=== PATIENT | male | born 1930 | race Caucasian/White ===

== ENCOUNTER 2020-09-19 21:54 | Inpatient (IN) | payer MEDICARE, OTHER ==
[~2020-09-19] VITALS: Ht 180.3 cm; Wt 106.0 kg
--- NOTE | 2020-09-19 22:04 | PHYS DOC ---
Past History Past Medical History: Arthritis, Bronchitis, Cancer, CHF, Diabetes, Heart Disease, Hypertension, Renal Disease, Sciatica Past Medical History Hx. 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 I ve been feeling zander off the last few days.. felt like I had a fever.. but my said I didnt when she took it... I went to get out my chair.. but couldnt... to weak... the last time this happen.. I was septic.. and had a UTI.. My back been hurting more tonight too.. but the fever and shortness of breath is more concern.. and I got so weak ., I could not get out the chair...".." I feel like I.. got flu.. or some bug..."." ,...but .. I I have not left the house a bit, or been around anybody sick since this Covid things started.." .." my gut even hurts.." Patient is a 89 year old male who presents with above hx and complaints of weakness, fatigue, dyspnea, fever, malaise, arthralgia, myalgia and nonproductive cough. Patient been ill last several days. Patient normally follows [facility]. Patient also follows at [place]. Patient has hx. of diabetes. 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 Pt. worked in [employer] 4 yrs. in [employer]. Past history of hypertension, diabetes, sleep apnea, sciatica and chronic low back pain, CHF, renal insufficiency, asbestosis, prostate cancer status post prostatectomy surgery. Pt. had no recent travel. No specific ill contacts. is well. No change in meds. History of prostate cancer and surgery 19 years ago. Patient has been compliant with home meds including his anti coagulation drugs. Review of Systems: Review of Systems: Constitutional: Complains of fever Eyes: Denies change in visual acuity HENT: Denies nasal congestion or sore throat Respiratory: Complains of shortness of breath Cardiovascular: Complains of irregular heart rate GI: generalized abdominal pain,, denies nausea, vomiting, bloody stools or diarrhea : Denies dysuria Musculoskeletal: Complains of back pain or joint pain. Complains of generalized weakness Integument: Denies rash Neurologic: Denies headache, focal weakness or sensory changes Endocrine: Denies polyuria or polydipsia Lymphatic: Denies swollen glands Psychiatric: Denies depression or anxiety Family History: Family History: Noncontributory to presentation Current Medications: Current Meds: See nursing for home meds Allergies: Allergies: No known drug allergies Physical Exam: PE: Constitutional: Moderate acute distress, non-toxic appearance. [] HENT: Normocephalic, atraumatic, bilateral external ears normal, oropharynx moist, no oral exudates, nose normal. [] Eyes: PERRLA, EOMI, conjunctiva normal, no discharge. [] Neck: Normal range of motion, no tenderness, supple, no stridor. [] Cardiovascular: Bradycardia occasional PVC per monitor, irregular heart rate, PMI to left, no murmur [] Lungs & Thorax: Bilateral breath sounds equal apex with scattered wheezes rhonchi and crackles on auscultation [] Abdomen: Bowel sounds normal, soft, no tenderness, no masses, no pulsatile masses. Distended. Old surgery scars. Skin: Warm, dry, no erythema, no rash. [] Back: No tenderness, no CVA tenderness. [] Extremities: No tenderness, no cyanosis, no clubbing, ROM intact, no edema. Arthritic changes. No cording. Neurologic: Alert and oriented X 3, normal motor function, normal sensory function, no focal deficits noted. [] Psychologic: Affect anxious, judgement normal, mood normal. [] EKG: EKG: My interpretation EKG shows a sinus rhythm at 64 bpm. Does have occasional PVCs. Does have prolonged QT intervals at 498 ms. QTC is 513 ms. Patient also has a prolonged MT interval at 944 ms. Leftward axis. Abnormal EKG however no findings of acute STEMI of contralateral changes. [] Radiology/Procedures: Radiology/Procedures: [address] [address] IMAGING REPORT Signed PATIENT: JUAN BAZAN ACCOUNT: [id number] : 1930 LOCATION: [address] [place] [address] AGE: 89 SEX: M EXAM STATUS: ADM IN ORD. PHYSICIAN: BIB COTA MD REASON: dyspnea PROCEDURE: CHEST AP ONLY EXAM: XR CHEST 1V 09/20/2020 1:00 AM CLINICAL INDICATION: Dyspnea COMPARISON: None TECHNIQUE: AP view of the chest FINDINGS: The heart is mildly enlarged. Lungs are adequately expanded. There are multiple bilateral pulmonary nodules. There is a subpleural density along the right lateral hemithorax. No pneumothorax. No acute osseous abnormality. IMPRESSION: 1. Multiple bilateral pulmonary nodules. This could be numerous calcified granuloma, however given the patient's history of malignancy metastatic disease is possible. 2. Rounded subpleural density along the right lateral hemithorax could be a loculated effusion or pleural-based mass. CT chest could be obtained to further evaluate. Electronically signed by: Ania Yanes MD (09/20/2020 3:22 AM) [id number] DICTATED AND SIGNED BY: ANIA YANES MD DATE: 09/20/209 CC: BIB COTA MD; ALYSSIA BOWLES MD; ARSENIO SHAW MD ~MTH0 0 [][place] [address] IMAGING REPORT Signed PATIENT: JUAN BAZAN ACCOUNT: [id number] : 1930 LOCATION: ER AGE: 89 SEX: M EXAM STATUS: REG ER ORD. PHYSICIAN: BIB COTA MD REASON: pain, hx prostate cancer, WEAKNESS PROCEDURE: CT LUMBAR SPINE WO CONTRAST EXAMINATION: CT LUMBAR SPINE WO, 09/19/2020 10:33 PM CLINICAL INDICATION: Prostate cancer, weakness COMPARISON: CT abdomen and pelvis 12/04/2008. TECHNIQUE: Helical CT imaging performed of the lumbar spine without the use of intravenous contrast. Sagittal and coronal reformats were obtained. One or more of the following individualized dose reduction techniques were utilized for this examination: 1. Automated exposure control 2. Adjustment of the mA and/or kV according to patient size 3. Use of iterative reconstruction technique. FINDINGS: There 5 nonrib-bearing lumbar vertebral bodies. There is no acute fracture. No suspicious osseous lesions. There is 3 mm anterolisthesis of L2 on L3. Mild S-shaped lumbar scoliosis. There is severe disc space narrowing at L3- L4 and moderate asymmetric disc space narrowing L4-L5 with vacuum disc phenomenon and anterior osteophytes. At L1-L2, there is a trace broad-based disc bulge, moderate facet arthrosis, and ligamentum flavum thickening. No canal or foraminal narrowing. At L2-L3, a disc bulge combined with severe left greater than right facet arthrosis and ligamentum flavum thickening results in moderate to severe canal narrowing. Mild bilateral foraminal narrowing. At L3-L4, a disc bulge combined with moderate facet arthrosis and ligament flavum thickening results in moderate canal and moderate bilateral foraminal sapna rowing. At L4-L5, a broad-based disc bulge, moderate facet arthrosis, and posterior endplate proliferation results in severe right foraminal narrowing. No canal narrowing. At L5-S1, a shallow disc bulge and moderate facet arthrosis results in mild right foraminal narrowing. No canal narrowing. There is severe calcified aortoiliac atherosclerosis. There are hypodense lesions in the liver, one measuring at least 3.1 cm and the other at least 1.5 cm. These have low-density but are incompletely visualized. Paraspinous musculature is normal. IMPRESSION: 1. No acute fracture or suspicious osseous lesion. 2. Overall moderate degenerative disc disease with multifactorial moderate to severe canal narrowing at L2-L3 and moderate canal narrowing at L3-L4. 3. Multilevel foraminal narrowing, severe on the right at L4-L5 and moderate bilaterally at L3-L4. 4. Multilevel facet arthrosis. 5. Severe calcified aortoiliac atherosclerosis. 6. Hypodense lesions in the liver, one measuring at least 3 cm. These likely correlate with multiple hepatic cysts seen on CT from 2008. Electronically signed by: Ania Yanes MD (09/19/2020 11:56 PM) [id number] DICTATED AND SIGNED BY: ANIA YANES MD DATE: 09/19/20 [id number] Heart Score: HEART Score for Chest Pain: HEART Score for Chest Pain Response (Comments) Value History Moderately Suspicious 1 ECG Nonspecific Repolarizatio 1 Age > 65 2 Risk Factors 1 or 2 Risk Factors 1 Troponin < Normal Limit 0 Total 5 Risk Factors: Risk Factors: DM, Current or recent (<one month) smoker, HTN, HLP, family h istory of CAD, obesity. Risk Scores: Score 0 - 3: 2.5% MACE over next 6 weeks - Discharge Home Score 4 - 6: 20.3% MACE over next 6 weeks - Admit for Clinical Observation Score 7 - 10: 72.7% MACE over next 6 weeks - Early Invasive Strategies Course & Med Decision Making: Course & Med Decision Making Pertinent Labs and Imaging studies reviewed. (See chart for details) Discussed presentation, testing and tx. plan with Dr. Bowles. Admit for further eval. and tx. After hydration and antibiotic consider CT chest abdomen. Contrast IV only if creat. improves. Impression: 1. Fever 2. Weakness and fatigue 3. Dyspnea 4. Atypical pneumonia 5. CHF diastolic and systolic dysfunction BNP 1837 6. Elevated lactic acid 2.4 7. Diabetes glucose 193 8. Leukocytosis 12.2 9. Anemia hemoglobin 11.5 10. Acute on chronic back pain-degenerative joint changes-multilevel 11 Hx. Abestosis 12. Pulmonary Nodules / adenopathy =? Metastatic vs inflammatory 13. Sleep apnea Hx. 14. Elevated Lactic Acid 2,4 15. Urinary Tract Infection. [] Dragon Disclaimer: Dragon Disclaimer: This electronic medical record was generated, in whole or in part, using a voice recognition dictation system. Departure Departure: Referrals: ARSENIO SHAW MD (PCP) Dragon Disclaimer This chart was dictated in whole or in part using Voice Recognition software in a busy, high-work load, and often noisy Emergency Department environment. It may contain unintended and wholly unrecognized errors or omissions. Dragon Disclaimer This chart was dictated in whole or in part using Voice Recognition software in a busy, high-work load, and often noisy Emergency Department environment. It may contain unintended and wholly unrecognized errors or omissions. Dragon Disclaimer This chart was dictated in whole or in part using Voice Recognition software in a busy, high-work load, and often noisy Emergency Department environment. It may contain unintended and wholly unrecognized errors or omissions. Dragon Disclaimer This chart was dictated in whole or in part using Voice Recognition software in a busy, high-work load, and often noisy Emergency Department environment. It may contain unintended and wholly unrecognized errors or omissions. BIB COTA MD Sep 19, 2020 22:04
[2020-09-19] MEDS ORDERED: methylPREDNISolone SOD SUCC PF 125 MG/2 ML VIAL. IV ONE (23:00)
[2020-09-19] MEDS ORDERED: AZITHROMYCIN 250 MG TABLET. PO ONE (23:00)
[2020-09-19] MEDS ORDERED: ASPIRIN CHEWABLE 81 MG TABLET. PO ONE (23:00)
[2020-09-19] MEDS ORDERED: ACETAMINOPHEN 500 MG TABLET PO ONE (23:00)
[2020-09-19] MEDS ORDERED: ALBUTEROL SULFATE 8GM INHALER. INH ONE (23:00)
[2020-09-19 23:02] LABS: BASO % 0 % (0-3); EOS % 0 % (0-3); HEMOGLOBIN 11.8 g/dL (13.0-17.5); LYMPH # 0.9 x10^3/uL (1.0-4.8); LYMPH % 8 % (24-48); MEAN CORPUSCULAR HEMOGLOBIN 32 pg (25-35); MEAN CORPUSCULAR HGB CONC 33 g/dL (31-37); MEAN CORPUSCULAR VOLUME 97 fL (79-100); MONO # 1.3 x10^3/uL (0.0-1.1); MONO % 11 % (0-9); NEUT # 9.8 x10^3uL (1.8-7.7); NEUT % 81 % (31-73); PLATELET COUNT 200 x10^3/uL (140-400); RED BLOOD COUNT 3.71 x10^6/uL (4.30-5.70); WHITE BLOOD COUNT 12.2 x10^3/uL (4.0-11.0)
[2020-09-19] MEDS ORDERED: IV NORMAL SALINE 50ML 50 ML ONE (23:10)
[2020-09-19 23:11] LABS: CALCIUM 8.6 mg/dL (8.5-10.1); CREATININE 2.1 mg/dL (0.7-1.3); POTASSIUM 4.4 mmol/L (3.5-5.1)
[2020-09-19] MEDS ORDERED: cefTRIAXone SODIUM 1 GM VIAL ONE (23:11)
[2020-09-19] MEDS: IV RINGERS SOLUTION,LACTATED 1,000 ML IV SCH (23:17)
[2020-09-19 23:23] LABS: DIRECT BILIRUBIN 0.3 mg/dL (0.0-0.2); MAGNESIUM 1.9 mg/dL (1.8-2.4); TOTAL BILIRUBIN 1.3 mg/dL (0.2-1.0); TOTAL PROTEIN 7.4 g/dL (6.4-8.2)
--- NOTE | 2020-09-19 23:58 | RAD ---
EXAMINATION: CT LUMBAR SPINE WO, 09/19/2020 10:33 PM CLINICAL INDICATION: Prostate cancer, weakness COMPARISON: CT abdomen and pelvis 12/04/2008. TECHNIQUE: Helical CT imaging performed of the lumbar spine without the use of intravenous contrast. Sagittal and coronal reformats were obtained. One or more of the following individualized dose reduction techniques were utilized for this examinat ion: 1. Automated exposure control 2. Adjustment of the mA and/or kV according to patient size 3. Use of iterative reconstruction technique. FINDINGS: There 5 nonrib-bearing lumbar vertebral bodies. There is no acute fracture. No suspicious o sseous lesions. There is 3 mm anterolisthesis of L2 on L3. Mild S-shaped lumbar scoliosis. There is s evere disc space narrowing at L3-L4 and moderate asymmetric disc space narrowing L4-L5 with vacuum di sc phenomenon and anterior osteophytes. At L1-L2, there is a trace broad-based disc bulge, moderate facet arthrosis, and ligamentum flavum th ickening. No canal or foraminal narrowing. At L2-L3, a disc bulge combined with severe left greater than right facet arthrosis and ligamentum fl avum thickening results in moderate to severe canal narrowing. Mild bilateral foraminal narrowing. At L3-L4, a disc bulge combined with moderate facet arthrosis and ligament flavum thickening results in moderate canal and moderate bilateral foraminal narrowing. At L4-L5, a broad-based disc bulge, moderate facet arthrosis, and posterior endplate proliferation re sults in severe right foraminal narrowing. No canal narrowing. At L5-S1, a shallow disc bulge and moderate facet arthrosis results in mild right foraminal narrowing . No canal narrowing. There is severe calcified aortoiliac atherosclerosis. There are hypodense lesions in the liver, one m easuring at least 3.1 cm and the other at least 1.5 cm. These have low-density but are incompletely v isualized. Paraspinous musculature is normal. IMPRESSION: 1. No acute fracture or suspicious osseous lesion. 2. Overall moderate degenerative disc disease with multifactorial moderate to severe canal narrowing at L2-L3 and moderate canal narrowing at L3-L4. 3. Multilevel foraminal narrowing, severe on the right at L4-L5 and moderate bilaterally at L3-L4. 4. Multilevel facet arthrosis. 5. Severe calcified aortoiliac atherosclerosis. 6. Hypodense lesions in the liver, one measuring at least 3 cm. These likely correlate with multiple hepatic cysts seen on CT from 2008. Electronically signed by: Ania Yanes MD (09/19/2020 11:56 PM) [id number]
[2020-09-20] MEDS ORDERED: ONDANSETRON PF 4 MG/2 ML VIAL. IVP PRN (00:45)
[2020-09-20] MEDS ORDERED: ACETAMINOPHEN 325 MG TABLET PO PRN (00:45)
[2020-09-20 01:10] LABS: BARBITURATES NEG (NEG); BENZODIAZEPINES NEG (NEG); CANNABINOIDS NEG (NEG); COCAINE NEG (NEG); METHADONE NEG (NEG); OPIATES NEG (NEG); PHENCYCLIDINE NEG (NEG)
[2020-09-20 01:12] LABS: AMPHETAMINE/METHAMPHETAMINE NEG (NEG)
[2020-09-20] MEDS ORDERED: FUROSEMIDE 40 MG/4 ML VIAL IVP ONE (01:15)
[2020-09-20] MEDS ORDERED: IV RINGERS SOLUTION,LACTATED 1,000 ML IV ONE (01:15)
[2020-09-20] MEDS: IV RINGERS SOLUTION,LACTATED 1,000 ML IV SCH ×2 (01:16→01:17)
[2020-09-20 01:17] LABS: BILIRUBIN,URINE NEG (NEG); CLARITY,URINE HAZY; COLOR,URINE YELLOW; GLUCOSE,URINE NEG (NEG)
[2020-09-20 01:18] LABS: BACTERIA,URINE MOD /HPF (0-FEW); NITRITE,URINE NEG (NEG); RBC,URINE OCC /HPF (0-2); UROBILINOGEN,URINE 0.2 mg/dL (0.2 mg/dL); WBC,URINE >40 /HPF (0-4)
--- NOTE | 2020-09-20 01:40 | NUR ---
Pt was [facility] room [facility] from ER via [facility], accompanied by EMS and nursing staff. Pt pulled over from gurney to bed x 4 assist. Admission assessment completed. Pt stated that his "legs felt weak and heavy...I was unable to get out of my chair. been feeling sick for the last few days." Pt stated that his leg strength has improved since coming to hospital but is still "off" for him. Pt was able to stand at bedside with walker to use urinal. Health history & home medication (see paper list) reviewed with pt. Oni for VTE. Pt UTD on flu vaccine. PT/OT consulted. Pt was given written information regarding hospital policies, unit procedures and contact persons. Valuables were checked and left at bedside.
[2020-09-20 02:07] VITALS: BP 132/59
[2020-09-20] MEDS ORDERED: SOTA120T14 PO (02:42)
[2020-09-20] MEDS ORDERED: SPIR25TA5 PO (02:42)
[2020-09-20] MEDS ORDERED: APIX2.5T PO (02:42)
[2020-09-20] MEDS ORDERED: BENA20TA4 PO (02:42)
[2020-09-20] MEDS ORDERED: FURO40TA4 PO (02:42)
[2020-09-20] MEDS ORDERED: POTA20TA4 PO (02:42)
[2020-09-20] MEDS ORDERED: GABA-586 PO (02:42)
[2020-09-20] MEDS ORDERED: ALOG6.252 PO (02:42)
[2020-09-20] MEDS ORDERED: AMLO-187 PO (02:42)
--- NOTE | 2020-09-20 03:24 | RAD ---
EXAM: XR CHEST 1V 09/20/2020 1:00 AM CLINICAL INDICATION: Dyspnea COMPARISON: None TECHNIQUE: AP view of the chest FINDINGS: The heart is mildly enlarged. Lungs are adequately expanded. There are multiple bilateral pulmonary nodules. There is a subpleural density along the right lateral hemithorax. No pneumothorax. No acute osseous abnormality. IMPRESSION: 1. Multiple bilateral pulmonary nodules. This could be numerous calcified granuloma, however given th e patient's history of malignancy metastatic disease is possible. 2. Rounded subpleural density along the right lateral hemithorax could be a loculated effusion or ple ural-based mass. CT chest could be obtained to further evaluate. Electronically signed by: Ania Yanes MD (09/20/2020 3:22 AM) [id number]
[2020-09-20 05:26] VITALS: BP 110/69
[2020-09-20] MEDS: IPRATRPIUM/ALBUTEROL 0.5/2.5MG 3 ML NEBU. NEB SCH ×2 (08:00→12:00)
--- NOTE | 2020-09-20 08:02 | EKG ---
[address] [address] Test Date: 2020-09-19 Test Time: 22:21:42 Pat Name: JUAN BAZAN Department: Room: 122 A Gender: M Home Health Specialist: JOEY : 1930 Requested By: BIB COTA Order Number: [id number] Reading MD: Measurements Intervals [place] Rate: 64 P: 0 [place]: 262 QRS: -7 QRSD: 76 T: -5 QT: 498 QTc: 513 Interpretive Statements SINUS RHYTHM VENTRICULAR PREMATURE COMPLEX(ES) ATRIAL PREMATURE COMPLEX(ES) PROLONGED [place] INTERVAL LEFTWARD AXIS PROLONGED QT ABNORMAL ECG RI6.02 No previous ECG available for comparison
[2020-09-20] MEDS: LACTOBACILLUS RHAMNOSUS GG 1 CAPSULE. PO SCH ×2 (08:21→20:39)
[2020-09-20 10:45] VITALS: BP 134/56
--- NOTE | 2020-09-20 10:46 | NUR ---
Per Dr Bowles, we will postpone CT Chest/abdomen/pelvis and order at a later date.
[2020-09-20 14:28] VITALS: BP 114/51
--- NOTE | 2020-09-20 14:56 | HP ---
ADMIT DATE: 09/20/2020 PRIMARY CARE PHYSICIAN: Dr. Ochoa HISTORY OF PRESENT ILLNESS: The patient is an 89-year-old male patient who presented to the Emergency Room with complaint of weak, had a fever and was unable to get out of his chair, last time something like this happened while he was septic and had UTI. He also has back pain, more than usual, but the fever and shortness of breath is more concern and therefore, he was brought to the hospital for further evaluation and treatment neither he nor his , has documented exposure to anybody with COVID-19 infection. He also complained of malaise, arthralgia, myalgia, and nonproductive cough. He apparently has been ill for the last several days. The patient follows at the [place] and also his primary care physician is Dr. Ochoa. He was admitted. He was extensively investigated in the Emergency Room, has had an EKG, which showed that he was in sinus rhythm at 64 beats per minute, does have a prolonged QT interval of 498 with a corrected QT interval of 513, also prolonged TN interval, but no evidence of STEMI. His chest x-ray showed that the patient has multiple bilateral pulmonary nodules. This could be numerous calcified granulomas; however, given the patient's history of malignancy, metastatic disease possible, has rounded subpleural density along the right lateral hemithorax could be loculated effusion or pleural based mass. He has also mildly enlarged heart and lungs are adequately expanded. He did have also CT scan of the lumbar spine showed the patient has no acute fracture or suspicious osseous lesion. He has overall moderate degenerative disk disease with multiple level [id number]-[id number] canal narrowing at L2-L3 and moderate canal narrowing at L3-L4, had multilevel foraminal narrowing, multilevel facet arthrosis, severe calcified aortoiliac atherosclerosis, hypodense lesion in the liver measuring 3 mm, likely correlates with multiple hepatic cyst. The patient was treated with IV antibiotic in the form of ceftriaxone and Zithromax, was given also lactated ringer and furosemide, and was admitted for further evaluation and treatment. PAST MEDICAL HISTORY: Significant for type 2 diabetes mellitus, coronary artery disease, status post PCI and stent deployment, chronic atrial fibrillation, hypertension, hyperlipidemia, morbid obesity and obstructive sleep apnea. PAST SURGICAL HISTORY: Significant for tonsillectomy, bilateral cataract extraction, bilateral total knee arthroplasty, prostatectomy and cholecystectomy. He became incontinent and has had a device to assist with continence. ALLERGIES: He has no known drug allergies. MEDICATIONS: He is currently on following medications: He is on apixaban 2.5 mg twice a day, sotalol 120 mg twice a day, amlodipine besylate 10 mg once a day, benazepril 20 mg daily, spironolactone 25 mg once a day, gabapentin 300 mg twice a day, potassium chloride 20 mEq once a day, furosemide 40 mg daily and alogliptin 6.25 mg once a day. FAMILY HISTORY: He has one brother older and 4 sisters are older. All of them except 1 sister. The cause of their is not known to him. His father of prostate cancer at the age of 82 and mother has at age of 87 because of dementia and Parkinson's disease. SOCIAL HISTORY: He is , has 3 biological children and 4 stepchildren. He never smoked. Drinks alcohol very occasionally. 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 REVIEW OF SYSTEMS: As per history of present illness. PHYSICAL EXAMINATION: GENERAL: On arrival to the Emergency Room, he looked well and was clearly in no apparent respiratory distress, slightly pale, but no jaundice, cyanosis or thyromegaly. No jugular venous distention. No limb edema. VITAL SIGNS: His heart rate on arrival was 68, blood pressure 151/67, temperature was 100.2, respiratory rate was 16, and oxygen saturation was 95%. HEAD, EYES, EARS, NOSE AND THROAT: Showed normocephalic and atraumatic. NECK: Supple. HEART: Showed normal first and second heart sounds. No gallop or murmur. CHEST: Clear to auscultation. No crepitation or rhonchi. ABDOMEN: Distended, soft, nontender. NEUROLOGIC: He was extremely hard of hearing, but all other cranial nerves are intact. EXTREMITIES: He moves extremities without difficulty. He ambulates with a cane at home. LABORATORY DATA: Showed a white cell count of 12,200; hemoglobin 11.8; hematocrit 36; MCV 97 and platelet count of 200,000. His chemistry showed a serum sodium 136, potassium 4.4, chloride 101, bicarbonate 23, anion gap of 12, BUN 44, creatinine was 2.1, estimated GFR was 30 mL per minute. His glucose 193, calcium was 8.6. His magnesium was 1.9. Total bilirubin 1.3. AST, ALT, alkaline phosphatase were normal. His CK was 52. Beta natriuretic peptide was 1833. Total protein 7.4, albumin 3. His prothrombin time, INR and aPTT were normal. D-dimer was elevated at 0.96. Urinalysis showed the urine was yellow, hazy with a pH of 5.5, specific gravity of 1.010, small amount of protein. The urine was negative for glucose, ketones, blood, nitrite and bilirubin. There is large amount of leukocyte esterase, occasional rbc's, more than 40 wbc's, and moderate amount of bacteria. Urine drug screen was essentially negative. His chest x-ray showed the patient has multiple bilateral pulmonary nodules. This could be numerous calcified granulomas; however, given the patient's history of malignancy, metastatic disease possible, has rounded subpleural density along the right lateral hemithorax, could be loculated effusion or pleural based mass. CT scan could be obtained for further evaluation. His CT scan of the lumbar spine showed that the patient has no acute fracture or suspicious osseous lesions. Overall, moderate degenerative disk disease with multifocal wybzzvod-pz-ftpyrf canal narrowing at L2-L3, L3-L4; has multilevel foraminal narrowing severe in the right L4-L5 and moderate bilaterally at L3-L4; multiple facet arthrosis and severe calcified aortoiliac atherosclerosis. ASSESSMENT AND PLAN: The patient was basically admitted with generalized weakness and fever. The patient has probably congestive heart failure, slightly elevated lactic acid, type 2 diabetes mellitus, anemia, acute on chronic kidney disease, has prostate cancer with questionable metastatic nodules and urinary tract infection. He was started on IV ceftriaxone and Zithromax. We would continue all that and I will reconcile all his medication and I will hold his Lasix for now as well as his spironolactone. Continue with his alogliptin. I will hold his benazepril. Continue with sotalol. We will follow his lab works closely and decide on further management accordingly. ALYSSIA MENDES MD DR: FAMILIA/brianan JOB#: [id number] / [id number]
[2020-09-20] MEDS ORDERED: DEXTROSE 50% 25 GM / 50ML DISP.SYRIN. IV PRN (16:30)
[2020-09-20] MEDS: INSULIN LISPRO 300 UNITS/3 ML VIAL. SQ SCH (17:05)
[2020-09-20] MEDS: LINAGLIPTIN 5 MG TABLET PO SCH (17:06)
[2020-09-20] MEDS: IPRATROPIUM/ALBUTEROL 20/100mcg/INH INHALER. INH SCH ×2 (17:07→20:39)
--- NOTE | 2020-09-20 17:14 | PN ---
DATE: 09/20/2020 SUBJECTIVE: The patient was admitted yesterday with generalized weakness, fever, malaise, arthralgia, myalgia, and was admitted with urinary tract infection, lactic acidosis, questionable acute on chronic diastolic congestive heart failure, probably acute on chronic kidney injury. His most recent creatinine was available on the record was on 01/15/2014. At that time, his creatinine was only 0.9 mg/dL. On questioning him today, he stated that he is feeling generally much improved. He is able now to stand up from his bed or chair without difficulty, was able to walk without assistance or assistive devices and feels generally much improved. PHYSICAL EXAMINATION: GENERAL: When I saw him this afternoon, he looked pale, but no jaundice or cyanosis. No lymphadenopathy, no thyromegaly. No jugular venous distention. No limb edema. VITAL SIGNS: His heart rate was 64, blood pressure 114/51, temperature was 97, respiratory rate was 20, and oxygen saturation was 96%. HEAD, EYES, EARS, NOSE, THROAT: Normocephalic, atraumatic. NECK: Supple. HEART: Showed normal first and second heart sounds. No gallop, rub or murmur. CHEST: Clear to auscultation. No crepitation or rhonchi. ABDOMEN: Distended, soft, nontender. No guarding or rigidity. No organomegaly. All hernial orifice intact. Bowel sounds normal. NEUROLOGIC: He is extremely hard of hearing, but otherwise all his cranial nerves are intact. He moves extremities without difficulty. He ambulates without assistance or assistive devices. His intake and output are incompletely recorded. LABORATORY DATA: His lab work is still pending at the time of this dictation. Did have 3 sets of cardiac enzymes ruled out acute myocardial infarction. His lactic acid is down from 2.4 to 2.1. ASSESSMENT: 1. In summary, this is an 89-year-old male patient who was admitted with weakness, fatigue, dyspnea, fever, malaise, arthralgia, myalgia, and nonproductive cough. He was found to have questionable atypical pneumonia. 2. Congestive heart failure, probably acute on chronic, lactic acidosis, Type 2 diabetes mellitus. Normochromic normocytic anemia, acute on chronic kidney injury. Multiple bilateral pulmonary nodules, questionable metastatic versus inflammatory. He is also known to have obstructive sleep apnea, on BiPAP. PLAN: My plan is to continue with IV antibiotic in the form of ceftriaxone and Zithromax. Continue with apixaban for stroke prevention. Continue with sotalol to control the heart rate. I have held his other medications including his benazepril, furosemide and spironolactone. ALYSSIA MENDES MD DR: FAMILIA/brianna JOB#: [id number] / [id number]
[2020-09-20 18:28] LABS: CALCIUM 8.8 mg/dL (8.5-10.1); CREATININE 2.1 mg/dL (0.7-1.3)
[2020-09-20 20:02] VITALS: BP 133/66
[2020-09-20] MEDS: GABAPENTIN 300 MG CAPSULE. PO SCH (20:39)
[2020-09-20] MEDS: APIXABAN 2.5 MG TABLET PO SCH (20:39)
[2020-09-20] MEDS: SOTALOL 80 MG TABLET. PO SCH (20:40)
[2020-09-20] MEDS ORDERED: AZITHROMYCIN 250 MG TABLET. PO SCH (21:00)
[2020-09-20 22:55] VITALS: BP 136/77
[2020-09-21 06:00] VITALS: BP 129/68
--- NOTE | 2020-09-21 06:05 | NUR ---
Pt sitting up in chair at change of shift watching TV. Pt stated that his "legs feel stronger today." Pt able to be up with walker around in room and to bathroom. Family brought up home CPAP to use tonight. Pt brushed teeth and washed face this AM. Pt slept well during night. Pt hopeful for DC home soon.
[2020-09-21 06:30] LABS: BASO % 0 % (0-3); EOS % 0 % (0-3); HEMOGLOBIN 10.6 g/dL (13.0-17.5); LYMPH # 1.9 x10^3/uL (1.0-4.8); LYMPH % 11 % (24-48); MEAN CORPUSCULAR HEMOGLOBIN 31 pg (25-35); MEAN CORPUSCULAR HGB CONC 32 g/dL (31-37); MEAN CORPUSCULAR VOLUME 97 fL (79-100); MONO # 1.4 x10^3/uL (0.0-1.1); MONO % 8 % (0-9); NEUT # 14.2 x10^3uL (1.8-7.7); NEUT % 81 % (31-73); PLATELET COUNT 188 x10^3/uL (140-400); RED BLOOD COUNT 3.38 x10^6/uL (4.30-5.70); RED CELL DISTRIBUTION WIDTH 13.3 % (11.5-14.5); WHITE BLOOD COUNT 17.5 x10^3/uL (4.0-11.0)
[2020-09-21 06:42] LABS: ALBUMIN 2.5 g/dL (3.4-5.0); ALBUMIN/GLOBULIN RATIO 0.6 (1.0-1.7); CALCIUM 8.4 mg/dL (8.5-10.1); CREATININE 1.9 mg/dL (0.7-1.3); GFR 33.7; POTASSIUM 4.3 mmol/L (3.5-5.1); TOTAL BILIRUBIN 0.7 mg/dL (0.2-1.0); TOTAL PROTEIN 6.4 g/dL (6.4-8.2)
[2020-09-21] MEDS: INSULIN LISPRO 300 UNITS/3 ML VIAL. SQ SCH ×2 (08:00→12:00)
[2020-09-21] MEDS: IPRATROPIUM/ALBUTEROL 20/100mcg/INH INHALER. INH SCH ×2 (08:33→12:00)
[2020-09-21] MEDS: GABAPENTIN 300 MG CAPSULE. PO SCH (08:33)
[2020-09-21] MEDS: APIXABAN 2.5 MG TABLET PO SCH (08:34)
[2020-09-21] MEDS: SOTALOL 80 MG TABLET. PO SCH ×2 (08:35→08:37)
[2020-09-21] MEDS: LACTOBACILLUS RHAMNOSUS GG 1 CAPSULE. PO SCH (08:36)
[2020-09-21] MEDS: LINAGLIPTIN 5 MG TABLET PO SCH (08:36)
[2020-09-21 08:53] LABS: % BANDS 12 % (0-9); % LYMPHS 11 % (24-48); % MONOS 7 % (0-10); % SEGS 70 % (35-66)
[2020-09-21 08:56] LABS: PLT ESTIMATE ADEQUATE (ADEQUATE)
[2020-09-21] MEDS ORDERED: LACTOBACILLUS RHAMNOSUS GG 1 CAPSULE. PO SCH (09:00)
[2020-09-21] MEDS ORDERED: amLODIPine BESYLATE 10 MG TABLET PO SCH (09:00)
[2020-09-21] MEDS ORDERED: POTASSIUM CHLORIDE 20 MEQ TABLET.ER. PO SCH (09:00)
[2020-09-21 11:05] VITALS: BP 110/64
[2020-09-21] MEDS ORDERED: AZIT250T PO (15:25)
[2020-09-21] MEDS ORDERED: CEFD300C PO (15:25)
[2020-09-21 15:39] VITALS: BP 134/63
--- NOTE | 2020-09-21 16:23 | NUR ---
DISCHARGE NOTE-PT PIV ET TELE DISCONTINUED. DISCHARGE INSTRUCTIONS ET MEDICATIONS REVIEWED WITH PT, ET SIGNATURE OBTAINED. PRESCRIPTIONS SENT ELECTRONICALLY ET PAPER COPIES WELL. DAUGHTER ARRIVES TO PICK HIM UP, PT AMBULATES TO FRONT DOOR UNASSISTED.
--- NOTE | 2020-09-21 16:30 | DS ---
DATE OF DISCHARGE: 09/21/2020 HOSPITAL COURSE: The patient is an 89-year-old male patient who came with generalized weakness and had a fever and was unable to get out of his chair; and apparently last time something like this happened, he was diagnosed with sepsis and UTI. He did also complain of back pain more than usual, but the fever and shortness of breath was more concerning and, therefore, he was brought to the hospital for further evaluation and treatment. Neither he nor his has documented exposure to anybody with COVID-19 infection. He also complained of malaise, arthralgia, myalgia, and a productive cough. Apparently, he has been ill for the last several days. The patient follows at the OR and also his primary care physician is Dr. Ochoa. He was extensively investigated in the Emergency Room and his chest x-ray showed the patient has multiple bilateral pulmonary nodules. This could be numerous calcified granulomas; however, given the patient's history of malignancy, metastatic disease is possible. He has rounded subpleural density along the right lateral hemithorax, could be loculated effusion and pleural-based mass. He has also mildly enlarged heart, and lungs are adequately expanded. He did have also CT scan of the lumbar spine, which showed the patient has no acute fracture or suspicious osseous lesion. He was admitted as a person under investigation for COVID-19, community-acquired pneumonia, as well as urinary tract infection. He was treated with IV ceftriaxone as well as Zithromax. We continued all his other medications. Ultimately, his coronavirus by PCR came back negative. He remained afebrile, hemodynamically stable. His blood cultures were negative. He has been up and about, working with physical therapy, has been ambulating without assistance or assistive devices; and therefore, a decision was made to discharge him home. PHYSICAL EXAMINATION: GENERAL: When I examined him this afternoon, he looked well and was clearly in no apparent respiratory distress. He was pale, but no jaundice, cyanosis or thyromegaly. No jugular venous distention. No limb edema. VITAL SIGNS: His heart rate was 56, blood pressure 110/64, temperature was 98, respiratory rate was 20, and oxygen saturation was 97%. HEAD, EYES, EARS, NOSE AND THROAT: Showed normocephalic, atraumatic. NECK: Supple. HEART: Normal first and second heart sounds. No gallop, rub, or murmur. CHEST: Clear to auscultation. No crepitation or rhonchi. ABDOMEN: Distended, soft, nontender. NEUROLOGIC: He was hard of hearing, but otherwise all his other cranial nerves are intact. EXTREMITIES: He moves extremities without difficulty. The patient was ambulating without assistance or assistive devices. He normally uses a cane at home. His intake was 1300, output was incompletely recorded. LABORATORY DATA: Showed a white cell count of 17,500, hemoglobin 10.6, hematocrit 33, MCV 97, and platelet count of 188,000 with normal manual differential. His prothrombin time, INR and aPTT were normal. D-dimer slightly elevated. His chemistry showed a serum sodium of 138, potassium 4.3, chloride 103, bicarbonate 28, anion gap of 7, BUN 51, creatinine 1.9, estimated GFR was 33 mL per minute. His glucose was 148, calcium was 8.4. Total bilirubin, AST, ALT, and alkaline phosphatase were normal. Total protein was 6.4, albumin was 2.5. His prostate specific antigen was 0.07 ng/mL with normal range 0.00-4.00. His TSH was 1.007. Urinalysis showed large amount of leukocyte esterase with more than 40 wbc's, moderate amount of bacteria. Urine drug screen was negative and his coronavirus by PCR was negative. DISCHARGE MEDICATIONS: The patient was discharged home to continue on azithromycin 250 mg once a day for 3 more days, cefdinir 300 mg twice a day for 7 days, alogliptin 6.25 mg daily, amlodipine besylate 10 mg once a day, apixaban 2.5 mg twice a day, benazepril 20 mg daily, furosemide 40 mg once a day, gabapentin 300 mg twice a day, potassium chloride for Klor-Con 20 mEq once a day, sotalol 120 mg twice a day, and spironolactone 25 mg daily. FINAL DISCHARGE DIAGNOSES: 1. Urinary tract infection. 2. Community-acquired pneumonia. 3. Atrial fibrillation, rate controlled, well anticoagulated. 4. Type 2 diabetes mellitus. 5. Hypertension. ALYSSIA MENDES MD DR: FAMILIA/brianna JOB#: [id number] / [id number]
== END 2020-09-21 16:23 | disposition home or self-care (01) | DRG 177 ==
LOC: ER 21:54 → 1 SOUTH 09-20 01:06
PROVIDERS: ADMIT Internal Medicine; ATTEND Internal Medicine
PROC: 5A09357 Assistance with Respiratory Ventilation, Less than 24 Consecutive Hours, Continuous Positive Airway Pressure (ICD-10-PCS; principal; 2020-09-21)
DX: J15.6 Pneumonia due to other Gram-negative bacteria (principal); E43 Unspecified severe protein-calorie malnutrition; N39.0 Urinary tract infection, site not specified; E87.2 Acidosis; I13.0 Hypertensive heart and chronic kidney disease with heart failure and stage 1 through stage 4 chronic kidney disease, or unspecified chronic kidney disease; I48.20 Chronic atrial fibrillation, unspecified; I50.40 Unspecified combined systolic (congestive) and diastolic (congestive) heart failure; N17.9 Acute kidney failure, unspecified; J15.9 Unspecified bacterial pneumonia; D64.9 Anemia, unspecified; E11.22 Type 2 diabetes mellitus with diabetic chronic kidney disease; E78.5 Hyperlipidemia, unspecified; G47.33 Obstructive sleep apnea (adult) (pediatric); G89.29 Other chronic pain; I25.10 Atherosclerotic heart disease of native coronary artery without angina pectoris; I70.8 Atherosclerosis of other arteries; K76.89 Other specified diseases of liver; M47.9 Spondylosis, unspecified; M48.061 Spinal stenosis, lumbar region without neurogenic claudication; Z96.653 Presence of artificial knee joint, bilateral; E66.01 Morbid (severe) obesity due to excess calories; M54.5 Low back pain; N18.9 Chronic kidney disease, unspecified; Z20.822 Contact with and (suspected) exposure to COVID-19; Z80.42 Family history of malignant neoplasm of prostate; Z82.0 Family history of epilepsy and other diseases of the nervous system; Z90.79 Acquired absence of other genital organ(s); Z85.46 Personal history of malignant neoplasm of prostate; Z95.5 Presence of coronary angioplasty implant and graft; Z98.41 Cataract extraction status, right eye; Z98.42 Cataract extraction status, left eye; Z79.899 Other long term (current) drug therapy; Z68.32 Body mass index [BMI] 32.0-32.9, adult
CPT/HCPCS: 36415; 71045; 72131; 80048; 80053; 80076; 80307; 81001; 82550; 82947; 83605; 83690; 83735; 83880; 84443; 84484; 85007; 85025; 85379; 85610; 85730; 87040; 87086; 93005; 96361; 96365; 96375; G0103; J0696; J1815; J1940; J2930; J7120; U0003; 97110; 97530; 99285-25

== ENCOUNTER 2020-11-12 18:58 | Inpatient (IN) | payer MEDICARE, OTHER ==
[~2020-11-12] VITALS: Ht 180.3 cm; Wt 108.7 kg
[~2020-11-12 18:58] MED LIST: ALOG6.252 PO; AMLO-187 PO; APIX2.5T PO; AZIT250T PO; BENA20TA4 PO; CEFD300C PO; FURO40TA4 PO; GABA-586 PO; POTA20TA4 PO; SOTA120T14 PO; SPIR25TA5 PO
--- NOTE | 2020-11-12 19:46 | RAD ---
Chest radiograph 11/12/2020 7:21 PM INDICATION: Dizzy COMPARISON: 09/20/2020 TECHNIQUE: Frontal and lateral views of the chest are provided. FINDINGS: The cardiomediastinal silhouette is within normal limits. Pulmonary emphysematous changes are suspected. Nodular area of consolidation identified within the le ft upper lobe measuring 2.8 x 2.9 cm. Nodular airspace disease identified within the right lung with resolution of previously seen subpleural nodular opacity on prior examination from 09/20/2020. No sign ificant osseous abnormality is identified. IMPRESSION: New multifocal nodular airspace disease within the upper lobes with resolution of previously seen sub pleural consolidative change in the lateral right upper lobe. Differential considerations would inclu de multifocal pneumonia. Further evaluation with CT chest could be of benefit. Cryptogenic organizing pneumonia may have similar appearance. Underlying neoplastic causes remain a differential considerat ion. Electronically signed by: Maira Patel MD (11/12/2020 7:44 PM) [facility]
[2020-11-12 19:59] LABS: BASO % 1 % (0-3); EOS # 0.5 x10^3/uL (0.0-0.7); EOS % 6 % (0-3); HEMOGLOBIN 12.6 g/dL (13.0-17.5); LYMPH # 2.8 x10^3/uL (1.0-4.8); LYMPH % 34 % (24-48); MEAN CORPUSCULAR HEMOGLOBIN 32 pg (25-35); MEAN CORPUSCULAR HGB CONC 33 g/dL (31-37); MEAN CORPUSCULAR VOLUME 97 fL (79-100); MONO # 0.8 x10^3/uL (0.0-1.1); MONO % 10 % (0-9); NEUT # 4.2 x10^3uL (1.8-7.7); NEUT % 50 % (31-73); PLATELET COUNT 197 x10^3/uL (140-400); RED BLOOD COUNT 3.92 x10^6/uL (4.30-5.70); RED CELL DISTRIBUTION WIDTH 13.5 % (11.5-14.5); WHITE BLOOD COUNT 8.3 x10^3/uL (4.0-11.0)
[2020-11-12 20:06] LABS: CALCIUM 9.1 mg/dL (8.5-10.1); CREATININE 2.1 mg/dL (0.7-1.3); POTASSIUM 4.4 mmol/L (3.5-5.1)
[2020-11-12 20:11] LABS: ALBUMIN 3.2 g/dL (3.4-5.0); ALBUMIN/GLOBULIN RATIO 0.8 (1.0-1.7); TOTAL BILIRUBIN 0.9 mg/dL (0.2-1.0); TOTAL PROTEIN 7.4 g/dL (6.4-8.2)
[2020-11-12 20:22] LABS: MAGNESIUM 2.1 mg/dL (1.8-2.4); PHOSPHORUS 4.2 mg/dL (2.6-4.7)
--- NOTE | 2020-11-12 20:45 | PHYS DOC ---
Past History Past Medical History: Arthritis, Bronchitis, Cancer, CHF, Diabetes, Heart Disease, Hypertension, Renal Disease, Sciatica, Other Additional Past Medical Histor: prostate cancer (AUDRA SABA APRN) Past Surgical History: Cholecystectomy, Knee Replacement, Other Additional Past Surgical Histo: prostatectomy, urinary device syphincter (AUDRA SABA APRN) Alcohol Use: None (AUDRA SABA APRN) Adult General Chief Complaint Chief Complaint: HYPERTENSION HPI HPI Patient is a 89-year-old male who presents to the emergency department with concerns of increased heart rate and chest tightness that started shortly after finishing his dinner at 1830 today. Patient states just after eating he went to rest in his living room when he felt his pulse racing, took his pulse and it was 143 bpm, patient states this is unusually high for him even though he does have atrial fibrillation. Patient states after noticing his pulse racing, he felt some tightness to the left side of his chest. Patient rated this chest t ightness had a 7-8/10 on a 1-10 pain scale. Patient states he became concerned as he felt "a little fuzzy "and came to the emergency department. Patient currently rates his chest tightness at a 2-3/10 on a 1-10 pain scale. Patient denies any diaphoretic episodes, denies shortness of breath, denies cough or congestion, denies recent fever or chills. Patient denies rashes of his skin. Patient denies nausea, vomiting, diarrhea, or abdominal pain. Patient states he received his second COVID-19 vaccine 4 days ago. Patient denies any other physical complaints or physical concerns. (AUDRA SABA APRN) Review of Systems Review of Systems 14 body systems of review of systems have been reviewed. See HPI for pertinent positives and negative responses, otherwise all other systems are negative, nonpertinent or noncontributory. (AUDRA SABA APRN) Allergies Allergies Allergies Coded Allergies Type Severity Reaction Last Updated Verified No Known Drug Allergies 11/12/20 No (AUDRA SABA APRN) Physical Exam Physical Exam Constitutional: Well developed, well nourished, no acute distress, non-toxic appearance. HENT: Normocephalic, atraumatic, bilateral external ears normal, oropharynx moist, no oral exudates, nose normal. Eyes: PERRLA, EOMI, conjunctiva normal, no discharge. Neck: Normal range of motion, no tenderness, supple, no stridor., No menin gismus signs, no nuchal rigidity, no C-spine pain. Cardiovascular:Heart rate tachycardic, irregular rhythm. Lungs & Thorax: Bilateral breath sounds clear to auscultation however diminished at bases bilaterally, no increased pain to palpation of the thorax/chest. Abdomen: Bowel sounds normal, soft, no tenderness, no masses, no pulsatile masses. Skin: Warm, dry, no erythema, no rash. Back: No tenderness, no CVA tenderness. Extremities: No tenderness, no cyanosis, no clubbing, ROM intact, no edema. Neurologic: Alert and oriented X 3, normal motor function, normal sensory function, no focal deficits noted. Psychologic: Affect normal, judgement normal, mood normal. (AUDRA SABA APRN) Current Patient Data Vital Signs Vital Signs Date Time Temp Pulse Resp B/P (MAP) Pulse Ox O2 Delivery O2 Flow Rate FiO2 11/12/20 19:05 98.5 114 20 130/71 (90) 96 Lab Results Laboratory Tests Test 11/12/20 19:26 White Blood Count 8.3 x10^3/uL (4.0-11.0) Red Blood Count 3.92 x10^6/uL (4.30-5.70) L Hemoglobin 12.6 g/dL (13.0-17.5) L Hematocrit 38.0 % (39.0-53.0) L Mean Corpuscular Volume 97 fL (79-100) Mean Corpuscular Hemoglobin 32 pg (25-35) Mean Corpuscular Hemoglobin Concent 33 g/dL (31-37) Red Cell Distribution Width 13.5 % (11.5-14.5) Platelet Count 197 x10^3/uL (140-400) Neutrophils (%) (Auto) 50 % (31-73) Lymphocytes (%) (Auto) 34 % (24-48) Monocytes (%) (Auto) 10 % (0-9) H Eosinophils (%) (Auto) 6 % (0-3) H Basophils (%) (Auto) 1 % (0-3) Neutrophils # (Auto) 4.2 x10^3uL (1.8-7.7) Lymphocytes # (Auto) 2.8 x10^3/uL (1.0-4.8) Monocytes # (Auto) 0.8 x10^3/uL (0.0-1.1) Eosinophils # (Auto) 0.5 x10^3/uL (0.0-0.7) Basophils # (Auto) 0.0 x10^3/uL (0.0-0.2) Sodium Level 139 mmol/L (136-145) Potassium Level 4.4 mmol/L (3.5-5.1) Chloride Level 105 mmol/L (98-107) Carbon Dioxide Level 25 mmol/L (21-32) Anion Gap 9 (6-14) Blood Urea Nitrogen 35 mg/dL (8-26) H Creatinine 2.1 mg/dL (0.7-1.3) H Estimated GFR (Cockcroft-Gault) 30.0 BUN/Creatinine Ratio 17 (6-20) Glucose Level 163 mg/dL (70-99) H Calcium Level 9.1 mg/dL (8.5-10.1) Phosphorus Level 4.2 mg/dL (2.6-4.7) Magnesium Level 2.1 mg/dL (1.8-2.4) Total Bilirubin 0.9 mg/dL (0.2-1.0) Aspartate Amino Transferase (AST) 16 U/L (15-37) Alanine Aminotransferase (ALT) 19 U/L (16-63) Alkaline Phosphatase 67 U/L (46-116) Troponin I Quantitative < 0.017 ng/mL (0-0.055) Total Protein 7.4 g/dL (6.4-8.2) Albumin 3.2 g/dL (3.4-5.0) L Albumin/Globulin Ratio 0.8 (1.0-1.7) L (AUDRA SABA APRN) EKG EKG EKG performed at 190 by ED nursing staff shows atrial fibrillation with a heart rate of 105, QTc interval 0.483, no acute STEMI, no ACS, no acute ischemia appreciated. EKG interpreted by ED attending physician Dr. Fuller. Second EKG related to rhythm change performed at 2055, notes normal sinus rhythm without other ectopy, SC interval 0.296, QT 0.457, no acute STEMI, no ACS, no acute ischemia appreciated, EKG interpreted by ED attending physician Dr. Fuller. (AUDRA SABA APRN) Radiology/Procedures Radiology/Procedures []PATIENT: JUAN BAZAN EACCOUNT: [id number]#: [id number] : 1930 LOCATION: ER AGE: 89 SEX: M EXAM STATUS: REG ER ORD. PHYSICIAN: AUDRA SABA APRN REASON: dizzy PROCEDURE: CHEST PA & LATERAL Chest radiograph 11/12/2020 7:21 PM INDICATION: Dizzy COMPARISON: 09/20/2020 TECHNIQUE: Frontal and lateral views of the chest are provided. FINDINGS: The cardiomediastinal silhouette is within normal limits. Pulmonary emphysematous changes are suspected. Nodular area of consolidation identified within the left upper lobe measuring 2.8 x 2.9 cm. Nodular airspace disease identified within the right lung with resolution of previously seen subpleural nodular opacity on prior examination from 09/20/2020. No significant osseous abnormality is identified. IMPRESSION: New multifocal nodular airspace disease within the upper lobes with resolution of previously seen subpleural consolidative change in the lateral right upper lobe. Differential considerations would include multifocal pneumonia. Further evaluation with CT chest could be of benefit. Cryptogenic organizing pneumonia may have similar appearance. Underlying neoplastic causes remain a differential consideration. Electronically signed by: Lloyd Chapin MD (11/12/2020 7:44 PM) [facility] DICTATED AND SIGNED BY: LLOYD CHAPIN MD DATE: 11/12/201941 CC: AUDRA SABA APRN; ARSENIO SHAW MD ~MTH0 0 (AUDRA SABA APRN) Heart Score C/O Chest Pain: Yes HEART Score for Chest Pain: HEART Score for Chest Pain Response (Comments) Value History Moderately Suspicious 1 ECG Nonspecific Repolarizatio 1 Age > 65 2 Risk Factors 1 or 2 Risk Factors 1 Troponin < Normal Limit 0 Total 5 Risk Factors: Risk Factors: DM, Current or recent (<one month) smoker, HTN, HLP, family history of CAD, obesity. Risk Scores: Risk Factors: DM, Current or recent (<one month) smoker, HTN, HLP, family history of CAD, obesity. (AUDRA SABA APRN) Course & Med Decision Making Course & Med Decision Making Pertinent Labs and Imaging studies reviewed. (See chart for details) 82-year-old male, vital signs reviewed, presents emergency department concerning of chest pain and fast heart rate after eating at home. Physical examination concerning for cardiopulmonary process, a cardiopulmonary work-up was initiated in the ED. Patient's troponin nonconcerning for cardiac process, however EKG shows A. fib, during cardiac monitoring monitoring patient's nurse noticed and documented short 5 beat runs of ventricular tachycardia off of 3-lead monitoring device. Upon reexamination of the patient, the patient denies any increased chest pain or discomfort, patient does state he has no pain and feels as if he is doing much better. Chest x-ray was concerning for multifocal atypical pneumonia, discussed with patient will CT chest for further evaluation and admit to [facility] for atypical pneumonia and treatment. Patient states he is amenable to this plan. During cardiac monitoring of patient, systems technician noticed a rhythm change for the patient, patient now appears to be in normal sinus rhythm, a second EKG was ordered. Called and discussed patient case with inpatient Dr. Bowles who agreed to accept patient admission to the telemetry unit for atypical pneumonia and PUI, patient started on 500 mg Zithromax IV, 1 g Rocephin IV, COVID-19 routine testing obtained, serial troponin enzymes ordered, pending CT chest at that time, patient admitted to the telemetry unit, Dr. Bowles has assumed patient care at this time. (AUDRA SABA APRN) Dragon Disclaimer Dragon Disclaimer This electronic medical record was generated, in whole or in part, using a voice recognition dictation system. (AUDRA SABA APRN) Departure Departure: Impression: Primary Impression: Atypical pneumonia Additional Impression: Person under investigation for COVID-19 Disposition: 09 ADMITTED INPT THIS HOSP Admitting Physician: Autumn Bowles (Telemetry unit to Dr. Bowles for atypical pneumonia and PUI) (AUDRA SABA APRN) Condition: GUARDED Referrals: ARSENIO SHAW MD (PCP) Dragon Disclaimer This chart was dictated in whole or in part using Voice Recognition software in a busy, high-work load, and often noisy Emergency Department environment. It may contain unintended and wholly unrecognized errors or omissions. (BIB FULLER MD) Attending Signature Attending Signature I have participated in the care of this patient and I have reviewed and agree with all pertinent clinical information above including history, exam, and recommendations. (BIB FULLER MD) Problem Qualifiers AUDRA SABA APRN Nov 12, 2020 20:44 BIB FULLER MD Nov 12, 2020 23:54
--- NOTE | 2020-11-12 20:54 | RAD ---
PQRS Compliance Statement: One or more of the following individualized dose reduction techniques were utilized for this examinat ion: 1. Automated exposure control 2. Adjustment of the mA and/or kV according to patient size 3. Use of iterative reconstruction technique CT THORAX WO 11/12/2020 8:13 PM Indication: Abnormal chest x-ray, chest pain COMPARISON: CT chest 01/12/2005, CT abdomen/pelvis 12/04/2008 TECHNIQUE: Multiple axial CT images of the chest were obtained without intravenous contrast. Coronal and sagittal reformats are provided. FINDINGS: Thyroid gland is normal in appearance. Moderate calcified atheromatous plaque identified involving th e thoracic aorta. Heart size within normal limits. Three-vessel coronary vascular calcification is id entified. Mitral annular calcifications are identified. Calcified left hilar lymph nodes are noted. N o pathologically enlarged thoracic lymph nodes within the limitations of a noncontrast examination. P leural based nodularity with calcification is identified throughout the lungs correspond to opacities identified on recent chest radiograph. No focal airspace consolidation to suggest pulmonary infiltra te. Bronchial wall thickening canal with nonspecific bronchitis. No pleural effusions, pulmonary vasc ular congestion or pneumothorax. Simple cysts identified within the liver. There are subcentimeter hy podensities which are too small to characterize. Pleural-based nodule within the left upper lobe zia ures 2.5 x 1.6 cm, previously 2.0 x 1.0 cm on 01/12/2005. There is peripheral calcification this regio n. No suspicious osseous abnormality. 3 mm nonobstructing calculus identified in the right kidney. Th ere is a indeterminate superior pole right renal lesion measuring 1.4 cm (series 2, image 107). Addit ional simple cyst measures 5.8 cm in the superior pole right kidney. Cystic lesion within the tail th e pancreas measures 1.6 cm, not definitively seen on 01/12/2005 CT chest and measuring 6 mm on 9. IMPRESSION: 1. 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 More focal nodular thickening cecilia ntified in the left upper lobe anterior pleura, increased in size since 2004. Findings may be better evaluated with PET/CT to distinguish early mesothelioma. No new airspace consolidation to suggest pne umonia. 2. New solid lesion in superior pole right kidney measures 1.4 cm. Dedicated renal mass protocol CT i s recommended on a nonemergent basis. 3. Cystic lesion within the tail the pancreas measures 1.6 cm. MRCP could be of benefit for further e valuation. 4. Multifocal cystic lesions within the liver, most of which demonstrate fluid density suggestive of simple cysts. Additional findings are indeterminate and attention on abdominal MRI or pet imaging cou ld be of benefit. Electronically signed by: Maira Patel MD (11/12/2020 8:51 PM) [facility]
[2020-11-12] MEDS ORDERED: IV NORMAL SALINE 50ML 50 ML ONE (21:14)
[2020-11-12] MEDS ORDERED: cefTRIAXone SODIUM 1 GM VIAL ONE (21:14)
--- NOTE | 2020-11-12 21:18 | EKG ---
[address] [address] Test Date: 2020-11-12 Test Time: 19:05:07 Pat Name: JUAN BAZAN Department: Room: Gender: M Rn Correctional: : 1930 Requested By: AUDRA SABA Order Number: [id number] Reading MD: Measurements Intervals [place] Rate: 103 P: MS: QRS: 0 QRSD: 78 T: 17 QT: 356 QTc: 468 Interpretive Statements IRREGULAR RHYTHM, NO P-WAVE FOUND LEFTWARD AXIS NO SPECIFIC ECG ABNORMALITIES RI6.02 No previous ECG available for comparison
[2020-11-12] MEDS ORDERED: AZITHROMYCIN 500 MG in IV NORMAL SALINE 250ML 250 ML IV ONE (21:30)
[2020-11-12] MEDS ORDERED: IV NORMAL SALINE 250ML 250 ML ONE (21:48)
[2020-11-12] MEDS ORDERED: AZITHROMYCIN 500 MG VIAL. IV ONE (21:49)
--- NOTE | 2020-11-12 22:30 | NUR ---
The patient, JUAN BAZAN, 89 y/o, M admitted by ALYSSIA MENDES MD, was given written information regarding hospital policies, unit procedures and contact persons. Valuables were checked and vitals obtained. Pt is A&OX4 on room air and is able to express own concerns. Pt is currently sleeping in bed. Will continue to monitor.
[2020-11-12 22:46] VITALS: BP 148/76
[2020-11-13] MEDS: APIXABAN 2.5 MG TABLET PO SCH ×2 (00:08→08:32)
[2020-11-13] MEDS: GABAPENTIN 300 MG CAPSULE. PO SCH ×2 (00:08→08:32)
[2020-11-13] MEDS ORDERED: ANTI-COAG MONITOR BY PHARMACY. MC PRN (00:15)
--- NOTE | 2020-11-13 01:05 | EKG ---
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
[2020-11-13 05:51] VITALS: BP 104/45
[2020-11-13] MEDS ORDERED: FUROSEMIDE 40 MG TABLET PO SCH (09:00)
[2020-11-13] MEDS ORDERED: LINAGLIPTIN 5 MG TABLET PO SCH (09:00)
[2020-11-13] MEDS ORDERED: SOTALOL 80 MG TABLET. PO SCH (09:00)
[2020-11-13] MEDS ORDERED: amLODIPine BESYLATE 10 MG TABLET PO SCH (09:00)
[2020-11-13] MEDS ORDERED: LISINOPRIL 20 MG TABLET PO SCH (09:00)
[2020-11-13] MEDS ORDERED: SPIRONOLACTONE 25 MG TABLET PO SCH (09:00)
[2020-11-13] MEDS ORDERED: POTASSIUM CHLORIDE 20 MEQ TABLET.ER. PO SCH (09:00)
[2020-11-13 10:28] VITALS: BP 130/64
[2020-11-13 15:09] VITALS: BP 140/63
--- NOTE | 2020-11-13 16:41 | NUR ---
PATIENT IS DISCHARGED HOME WITH SELF CARE. PT IS STABLE AT TIME OF DISCHARGE. PT IS GIVEN ALL DISCHARGE AND FOLLOW UP INSTRUCTIONS. PTS IV IS REMOVED TELE MONITOR D/C'D AND PT IS W/C'D OFF OF UNIT ACCOMPANIED BY STAFF.
--- NOTE | 2020-11-13 17:18 | SSS ---
ADMIT DATE: 11/12/2020 HISTORY OF PRESENT ILLNESS: The patient is an 89-year-old male patient who came to the Emergency Room complaining that he felt his heart is racing and heart rate was 143 beats per minute. The patient stated that it is unusually high for him even though he does have atrial fibrillation. He also stated that he noticed his pulse racing. He felt also some tightness to the left side of his chest. He rated his chest tightness 7-8/10. The patient states that he became concerned and he felt a little dizzy. He came to the Emergency Department. The patient currently rates his chest pain on arrival at 2-3/10. Denied any diaphoresis. Denied any shortness of breath. Denies any cough, congestion. Denied any recent fever or chills. The patient denies any rashes of his skin. Denied any nausea, vomiting, diarrhea or abdominal pain. He stated that he received his second COVID-19 vaccine about 4 days ago. He denied any other physical complaints or physical concern. He was extensively evaluated in the Emergency Room. He had an EKG, which showed that the patient was in atrial fibrillation with a heart rate of 105, QT interval of 483 with no acute STEMI or acute coronary syndrome. No acute ischemia appreciated. Has had a chest x-ray, PA and lateral view, which showed that the cardiomediastinal silhouette is within normal limits, pulmonary emphysematous changes are suspected, nodular areas of consolidation is identified in the left upper lobe measuring 2.8 x 2.9 cm, nodular airspace disease identified within the right lung with resolution of previously seen subpleural nodular opacity on prior examination and therefore, the impression is that the patient has new multifocal nodular airspace disease within the upper lobe with resolution of previously seen subpleural consolidation changes in the lateral right upper lobe. Differential considerations include multifocal pneumonia. Further evaluation with CT chest could be of benefit, cryptogenic organizing pneumonia may also have similar appearance. Underlying neoplastic cause remains a differential consideration. He did have a CT scan of the chest, which basically showed that the patient has calcified pleural plaques suggestive of prior asbestos exposure, more focal nodular thickening identified in the left upper lobe anterior area increased in size since 2004. Finding may be better evaluated with CT to distinguish early mesothelioma. No new airspace consolidation to suggest pneumonia. New solid lesion in the superior pole of the right kidney measuring 1.4 cm, dedicated renal mass, protocol CT is recommended on a nonemergent basis. He has also had a cystic lesion within the tail of the pancreas measuring 1.6 cm. MRCP could be of benefit for further evaluation. The patient was admitted and had had 2 sets of cardiac enzymes that ruled out myocardial infarction and the patient remained hemodynamically stable, afebrile, has had no further episode of palpitation, no chest tightness, no chest pain, no shortness of breath. He maintained his oxygen saturation at 98% on room air and therefore, a decision was made to discharge him home. We have actually printed a copy of his CT scan of the chest to be taken to his primary care physician, Dr. Ochoa to address the finding on the CT scan. The CT scan showed no evidence of pneumonia. PAST MEDICAL HISTORY: Significant for congestive heart failure, type 2 diabetes mellitus, hypertension, chronic kidney disease, sciatica and prostate cancer. PAST SURGICAL HISTORY: Significant for cholecystectomy, prostatectomy, urinary device sphincter and knee replacement. SOCIAL HISTORY: He is , lives with his and has a daughter. He never smoked, does not drink alcohol or use any drugs. 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 ALLERGIES: He has no known drug allergies. MEDICATIONS: He is currently on following medications: Apixaban 2.5 mg twice a day, sotalol 120 mg twice a day, amlodipine 10 mg once a day, benazepril 20 mg once a day, spironolactone 25 mg once a day, gabapentin 300 mg twice a day, potassium chloride 20 mEq once a day, furosemide 40 mg once a day and alogliptin 6.25 mg once a day. REVIEW OF SYSTEMS: As per history of present illness. PHYSICAL EXAMINATION: GENERAL: On arrival to the Emergency Room, the patient was slightly tachycardic. There was no pallor, jaundice, cyanosis or thyromegaly. No jugular venous distention. No lower limb edema. VITAL SIGNS: His heart rate on arrival was 114 beats per minute, irregularly irregular; blood pressure was 130/71, temperature 98.5, respiratory rate 20, and oxygen saturation was 96%. HEAD, EYES, EARS, NOSE AND THROAT: Showed normocephalic, atraumatic. NECK: Supple. HEART: Showed normal first and second heart sounds. No gallop, rub or murmur. CHEST: Clear to auscultation. No crepitation or rhonchi. ABDOMEN: Distended, soft, nontender. NEUROLOGIC: He is very hard of hearing, but otherwise all his cranial nerves are intact. EXTREMITIES: He moves extremities without difficulty. He apparently ambulates without assistance or assistive devices. LABORATORY DATA: Showed a white cell count of 8300, hemoglobin 12.6, hematocrit 38, MCV 97, and platelet count of 197,000. His chemistry showed a serum sodium 139, potassium 4.4, chloride 105, bicarbonate 25, anion gap of 9, BUN 35, creatinine 2.1, estimated GFR was 30 mL per minute. His glucose was 163, calcium was 9.1. Total bilirubin, AST, ALT, alkaline phosphatase were normal. Total protein is 7.4 and albumin 3.2. His prothrombin time, INR and aPTT are all normal. The patient has 2 sets of cardiac enzymes that ruled out myocardial infarction. ASSESSMENT AND PLAN: The patient remained hemodynamically stable. His heart rate was in the 50s throughout his stay in the hospital, has had no further episodes of palpitation, no chest tightness, no dizziness, no shortness of breath therefore, the patient was discharged home to follow with his primary care physician. FINAL DISCHARGE DIAGNOSES: 1. Paroxysmal atrial fibrillation with rapid ventricular response. 2. Chest tightness, probably may be rate related angina. 3. Hypertension, type 2 diabetes mellitus, congestive heart failure, severe sensorineural deafness. The patient was advised to follow with his primary care physician and a copy of his finding on his CT scan was send with him highlighted to be addressed by his primary care physician. He should also follow with oil field rig builder for this chest tightness that could be rate related angina. ALYSSIA MENDES MD DR: FAMILIA/brianna JOB#: [id number] / [id number]
--- NOTE | 2020-11-15 11:28 | NUR ---
IP note: Call to pt to notify him of negative COVID results. Pt has no questions.
== END 2020-11-13 16:41 | disposition home or self-care (01) | DRG 309 ==
LOC: ER 18:58 → 1 SOUTH 21:00
PROVIDERS: ADMIT Internal Medicine; ATTEND Internal Medicine
DX: I48.0 Paroxysmal atrial fibrillation (principal); I13.0 Hypertensive heart and chronic kidney disease with heart failure and stage 1 through stage 4 chronic kidney disease, or unspecified chronic kidney disease; I50.9 Heart failure, unspecified; N18.9 Chronic kidney disease, unspecified; Z20.822 Contact with and (suspected) exposure to COVID-19; E11.22 Type 2 diabetes mellitus with diabetic chronic kidney disease; Z96.659 Presence of unspecified artificial knee joint; M19.90 Unspecified osteoarthritis, unspecified site; I20.9 Angina pectoris, unspecified; Z85.46 Personal history of malignant neoplasm of prostate
CPT/HCPCS: 36415; 71046; 71250; 80053; 82947; 83735; 84100; 84484; 85025; 85610; 85730; 93005; 96365; J0456; J0696; J7050; U0003; 99285-25

== ENCOUNTER → 2021-02-15 | Outpatient (CLI) | payer MEDICARE, OTHER ==
[~2021-02-15] MED LIST changes: +IOHEXOL 240 MG/ML 50ML VIAL. ONE; +IOHEXOL 300 MG/ML 75 ML VIAL. IV ONE
--- NOTE | 2021-02-16 10:25 | RAD ---
EXAM: CT Abdomen and Pelvis with IV contrast CLINICAL HISTORY: Reason: ELEVATED CA 19-9 LEVEL (TUMOR MARKER), MALIGNANCY / Spl. Instructions: CREA T 1.7/GFR 38- REDUCE DOSE TO 60 ML. DRINKING@11 / History: COMPARISON: CT chest 11/12/2020 TECHNIQUE: Helical CT of the abdomen and pelvis was performed following the administration of intrave nous contrast. Axial, coronal and sagittal reformatted images were generated. PQRS compliance statement - One or more of the following individualized dose reduction techniques wer e utilized for this study: 1. Automated exposure control 2. Adjustment of the mA and/or kV according to patient size 3. Use of iterative reconstruction technique FINDINGS: Lower Chest: Pleural-based nodule in the posterior right lower lobe measures 2.3 cm, only partially included in th e [id number] with peripheral calcification better assessed on prior CT chest. Additional pleural-b ased nodules are seen. Aortic calcifications and coronary calcifications are seen. Abdomen and Pelvis: Hypodense hepatic lesions are cystic. There is been a cholecystectomy. No biliary ductal dilatation. Pancreatic tail lesion measures 1.5 cm, fluid density. Adrenal glands are unremarkable. Hypodense rig ht upper pole renal lesion is exophytic measuring up to 12 Hounsfield units, likely cystic. Nonobstru cting right lower pole renal calculus. Nonobstructing left interpolar renal calculus. Appendix is normal. Moderate colonic stool content is seen. No small or large bowel dilatation. Colon ic diverticulosis of the sigmoid colon. Bladder is unremarkable. No abdominal or pelvic ascites. No a bdominal or pelvic lymphadenopathy. Dense aortobiiliac calcifications are seen. Changes of the prosth esis with reservoir in the lower/anterior pelvis. Surgical clips are also seen in the pelvis. There h as been a prostatectomy. Bladder is unremarkable. Fat-containing left inguinal hernia. Multilevel deg enerative changes of the spine are seen. No definite aggressive osseous lesion is seen. Bones: No aggressive osseous lesion is seen. IMPRESSION: 1. Hypodense hepatic and pancreatic tail lesions may be cystic or related to cystic mass/metastases. Given history of malignancy these can be further assessed by MRI if clinically indicated. 2. Moderate colonic stool content. No bowel obstruction. 3. Colonic diverticulosis without evidence for acute diverticulitis. Dense aortobiiliac calcificatio ns. 4. No abdominal or pelvic lymphadenopathy 5. Changes of prostatectomy with pelvic surgical clips. Electronically signed by: Omer Walls MD (02/16/2021 10:22 AM) DESMON[facility]
== END ==
LOC: CT 10:50
PROVIDERS: ATTEND Internal Medicine
DX: K57.30 Diverticulosis of large intestine without perforation or abscess without bleeding (principal); K86.89 Other specified diseases of pancreas; K76.89 Other specified diseases of liver; R97.8 Other abnormal tumor markers
CPT/HCPCS: 74177; Q9967

== ENCOUNTER 2021-08-10 18:53 | Inpatient (IN) | payer MEDICARE, OTHER ==
[~2021-08-10] VITALS: Ht 180.3 cm; Wt 113.8 kg
[~2021-08-10 18:53] MED LIST changes: -BENA20TA4 PO; +BENA20TA84 PO; -IOHEXOL 240 MG/ML 50ML VIAL. ONE; -IOHEXOL 300 MG/ML 75 ML VIAL. IV ONE; +POTA-121 PO; -POTA20TA4 PO
[2021-08-10 19:38] LABS: BASO # 0.1 x10^3/uL (0.0-0.2); BASO % 1 % (0-3); EOS # 0.3 x10^3/uL (0.0-0.7); EOS % 4 % (0-3); HEMATOCRIT 36.9 % (39.0-53.0); HEMOGLOBIN 12.3 g/dL (13.0-17.5); LYMPH # 2.3 x10^3/uL (1.0-4.8); LYMPH % 25 % (24-48); MEAN CORPUSCULAR HEMOGLOBIN 33 pg (25-35); MEAN CORPUSCULAR HGB CONC 33 g/dL (31-37); MEAN CORPUSCULAR VOLUME 99 fL (79-100); MONO # 0.8 x10^3/uL (0.0-1.1); MONO % 9 % (0-9); NEUT # 5.7 x10^3uL (1.8-7.7); NEUT % 62 % (31-73); PLATELET COUNT 195 x10^3/uL (140-400); RED BLOOD COUNT 3.74 x10^6/uL (4.30-5.70); RED CELL DISTRIBUTION WIDTH 13.8 % (11.5-14.5); WHITE BLOOD COUNT 9.2 x10^3/uL (4.0-11.0)
--- NOTE | 2021-08-10 19:42 | PHYS DOC ---
Past History Past Medical History: A-Fib, Arthritis, Bronchitis, Cancer, CHF, Diabetes, Heart Disease, Hypertension, Renal Disease, Sciatica, Other Additional Past Medical Histor: prostate cancer Past Surgical History: Cholecystectomy, Knee Replacement, Other Additional Past Surgical Histo: prostatectomy, urinary sphincter device- NO VÁZQUEZ CATH Smoking: Non-smoker Alcohol Use: None Drug Use: None Social History Narrative: Lives at home with General Adult EDM: Chief Complaint: MECHANICAL FALL HPI: HPI: Patient is an 89-year-old male who presents to the emergency department via EMS from home status post mechanical fall from standing height. Patient reports that he struck the back of his head as well as his lower back. Per EMS patient is on blood thinners- Eliquis. 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 Patient reports that the pain in his lower back slightly worse from his baseline. Patient denies dizziness or lightheadedness prior to or after the fall. He denies sensations of vertigo, weakness, chest pain, or palpitations. The patient is hard of hearing, he does have bilateral hearing aids. The patient's daughter is in the room with him and his helpful in reporting his recent medical history. She reports a complicated past medical history significant for recent pleural effusions around giving as well as recent medication changes. Patient was recently started on diltiazem about a week and half ago he was also discontinued from furosemide and spironolactone and was started on torsemide. She reports that the patient is at his baseline mental status. Patient's daughter reports that he is due to have an echocardiogram taken the next day or so due to concern of worsening coronary artery disease. Review of Systems: Review of Systems: Constitutional: Denies fever or chills Eyes: Denies redness or eye pain HENT: Denies nasal congestion or sore throat;reports hard of hearing Respiratory: Denies cough; reports mild shortness of breath worse from baseline Cardiovascular: Denies chest pain or palpitations GI: Denies abdominal pain, nausea, or vomiting : Denies dysuria or hematuria Musculoskeletal: Reports low back pain; denies extremity pain or deformity Integument: Denies rash or laceration Neurologic: Reports head contusion; denies focal weakness or sensory changes Complete systems were reviewed and found to be within normal limits, except as documented in this note. Family History: Family History: Noncontributory family history Allergies: Allergies: Allergies Coded Allergies Type Severity Reaction Last Updated Verified No Known Drug Allergies 11/12/20 No Physical Exam: PE: Constitutional: Obese body habitus, no acute distress, non-toxic appearance resting comfortably in bed HENT: Normocephalic, atraumati, no periorbital ecchymosis, no griffiths signs, no nasal drainage or discharge Eyes: PERRL, EOMI, conjunctiva normal, no discharge, no nystagmus Neck: Normal range of motion, no tenderness, no pain on palpation of midline cervical spine, supple, no JVD, trachea midline Lungs & Thorax: No respiratory distress, normal chest wall excursion bilaterally, lung sounds clear to auscultation bilaterally, +2 peripheral pulses bilaterally, tachycardic, irregular rhythm, no pain on palpation of patient's chest wall Abdomen: Soft, no tenderness, no rigidity, no guarding, no rebound tenderness, distention present which is consistent with reported patient baselineno fluid wave appreciated, pelvis stable on compression testing and palpation Pelvis: Stable and nontender Skin: Warm, dry, no erythema, no rash Back: Low lumbar midline and paraspinal tenderness, no CVA tenderness Extremities: No tenderness, ROM intact, +2 edema of right and left lower extre mities, left lower extremity slightly more swollen than the right however patient reports this is typical of him since having knee replacement surgery. Neurologic: Alert and oriented X 3, normal motor function, normal sensory function, no focal deficits noted Psychologic: Affect normal per patient baseline, judgment normal per patient baseline EKG: EKG: EKG taken at 1940 hrs. atrial fibrillation rate of 125 bpm. QRS interval 78 ms, QT/QTc 322/467 ms, no ectopy appreciated on this EKG, no T wave abnormalities, ST segments at baseline, no acute ischemic change appreciated Radiology/Procedures: Radiology/Procedures: [] Impressions: PROCEDURE: CT HEAD AND CERVICAL SPINE WO EXAM: CT HEAD WITHOUT IV CONTRAST CLINICAL HISTORY: Reason: pain s/p fall, on blood thinners / Spl. Instructions: / History: COMPARISON: None. TECHNIQUE: Routine CT of the head without contrast. Soft tissues and bone windows were reviewed. PQRS compliance statement - One or more of the following individualized dose reduction techniques were utilized for this study: 1. Automated exposure control 2. Adjustment of the mA and/or kV according to patient size 3. Use of iterative reconstruction technique FINDINGS: There is no evidence of hemorrhage, mass or extra-axial fluid collection. Suggs-white differentiation is maintained with no evidence of edema. White matter foci of hypoattenuation likely changes of chronic small vessel disease. There is no mass effect or shift of the intracranial structures. The ventricles and cerebral sulci are prominent for the patients stated age c onsistent with generalized cerebral volume loss. The cerebellum and brainstem are unremarkable. The calvarium demonstrates no evidence of fracture or focal lesion. There is normal aeration of the visualized paranasal sinuses and mastoid air cells. The visualized portions of the orbits are normal. Atherosclerotic calcifications of the intracranial internal carotid and vertebr al arteries is seen. IMPRESSION: No evidence for acute intracranial process. White matter foci of hypoattenuation likely changes of chronic small vessel disease. EXAM: CT CERVICAL SPINE WITHOUT IV CONTRAST CLINICAL HISTORY: Reason: pain s/p fall, on blood thinners / Spl. Instructions: / History: COMPARISON: None available. TECHNIQUE: Helical CT of the cervical spine was performed. Axial, coronal and sagittal reformatted images were also performed. PQRS compliance statement - One or more of the following individualized dose reduction techniques were utilized for this study: 1. Automated exposure control 2. Adjustment of the mA and/or kV according to patient size 3. Use of iterative reconstruction technique FINDINGS: Vertebral body heights are preserved. No spondylolisthesis. And moderate to severe disc height loss at C2-3, C3-4, C4-5. Moderate C5-6 and C6-7 disc height loss. Small endplate osteophytes are seen. Atlantodental degenerative changes are seen. Left pleural effusion is partially profiled. Atherosclerotic calcifications of the intracranial internal carotid and vertebral arteries is seen. IMPRESSION: No acute fracture or subluxation. Multilevel degenerative changes of the cervical spine as above. Electronically signed by: Omer Walls MD (08/10/2021 7:48 PM) ARA PROCEDURE: 1. CT thoracic spine without contrast 2. CT lumbar spine without contrast INDICATION: Pain. Fall. COMPARISON: CT abdomen/pelvis 02/15/2021; CT chest 11/12/2020; lumbar spine CT 09/19/2020 TECHNIQUE: Axial CT imaging of the thoracic and lumbar spine performed without the use of contrast. Coronal and sagittal reformats were obtained. One or more of the following individualized dose reduction techniques were utilized for this examination: 1. Automated exposure control 2. Adjustment of the mA and/or kV according to patient size 3. Use of iterative reconstruction technique. FINDINGS: Thoracic spine: Diffuse osteopenia limits assessment for subtle fractures. No newly apparent vertebral body height loss. Mild height loss and endplate undulation at the upper aspect of T3 is unchanged. Bridging ventral osteophytes without newly developed discontinuity. No traumatic listhesis or facet malalignment. Linear de fect of the right T4 superior articulating facet is chronic. Scattered degenerative changes without more than mild osseous neural foraminal narrowing. Greater degree of degenerative changes at the lower cervical spine better evaluated on the dedicated CT of this region. Extensive calcific atherosclerosis with coronary artery involvement and poorly characterize stenoses at the celiac and renal artery origins. Multiple granulomas. Mitral and partially imaged aortic annular mineralization. Similarly sized mediastinal lymph nodes. Development of small bilateral pleural effusions. Redemonstration of soft tissue pleural plaques and scattered mineralization. The partially imaged ribs are intact. A few chronic deformities of left ribs. Partially imaged hypoattenuating foci within the liver also present previously. Prominent partially imaged right renal cyst also present previously in addition to an exophytic intermediate density focus off the upper pole the right kidney. Lumbar spine: No change in lumbar vertebral body height or alignment with sigmoid curvature and grade 1 L2 on L3 anterolisthesis. Discogenic arthrosis greatest at L3-L4 and L4-L5. Facet arthrosis at all lumbar levels ranging from mild to severe. Central canal stenosis most notable at L2-L3 and L3-L4. Neural foraminal stenosis greatest on the right at L3-L4 and L4-L5. No definitive fracture throughout the partially assessed pelvis considering marked osteopenia. Severe calcific atherosclerosis colonic diverticulosis. Mildly distended urinary bladder. Pelvic surgical clips. Partially imaged penile prosthesis. Atrophic left kidney. Previous the described pancreatic abnormalities are not fully characterized on this exam but measure similar in size. Many of the described nonosseous findings had follow-up recommendations on previous studies. The current exams are inadequate to confirm stability. IMPRESSION: Thoracic and Lumbar Spine: 1. Taking into consideration diffuse osteopenia, no acute fracture is identified. No traumatic malalignment. 2. Multifactorial degenerative changes involving the lumbar spine more so than thoracic spine without significant progression from comparison exams. Central canal stenosis is favored greatest at L3-L4 and L4-L5. 3. Newly developed small bilateral pleural effusions and progressive atelectasis. Correlate for symptoms of congestive heart failure/volume overload. 4. Multiple nonosseous findings as described in the body report are without significant change from recent comparison exams noting incomplete characterizati on. Electronically signed by: KENIA OD MD (08/10/2021 8:27 PM) [facility] Heart Score: C/O Chest Pain: N/A Course & Med Decision Making: Course & Med Decision Making Pertinent Labs and Imaging studies reviewed. (See chart for details) 89-year-old male, prefers going by the name of Ed, presents to emergency [facility] via EMS status post mechanical fall from standing height. The patient is on apixaban. Patient reports no loss of consciousness but does endorse head trauma as well as striking his lower back. Patient has a complicated medical history with multiple medical comorbidities. Per daughter who was at the hospital with the patient he is acting at his normal baseline. Due to mechanism of injury as well as history of anticoagulation he was taken to CT scan upon his arrival. Scans were taking of patient's head as well as cervical, thoracic, lumbar spine. Additionally plan for EKG, IV access, blood work, urinalysis. Patient was offered IV pain medications however he declined. He reports that he would just like to have oral Tylenol to start. While in the emergency department the patient's heart rate was consistently in the mid 120s, EKG demonstrating atrial fibrillation with RVR. On continuous cardiac monitoring there is frequent premature ventricular contractions of different morphologies appreciated - no evidence of acute ischemic change. Due to this plan for administration of diltiazem as well as likely plan for admission to the hospital. Patient requiring admission for further evaluation and treatment. Discussed with Dr. Naranjo (hospitalist) who is in agreement with admission. Discussed findings and plan with patient and family, who acknowledge understanding and agreement. Ghanshyam Disclaimer: Ghanshyam Disclaimer: This electronic medical record was generated, in whole or in part, using a voice recognition dictation system. Departure Departure: Impression: Primary Impression: Atrial fibrillation with RVR Additional Impressions: Fall Qualified Codes: W19.XXXA - Unspecified fall, initial encounter Acute exacerbation of chronic low back pain Disposition: ADMITTED INPATIENT Admitting Physician: Cal Naranjo Condition: STABLE Referrals: ARSENIO SHAW MD (PCP) Critical Care Time Critical care time was 30 minutes which includes time at bedside, spent in discussion of patient's care with specialists and/or family members, with interpretation of laboratory and/or radiological studies and is exclusive of procedures. AUDRA GUERRA DO Aug 10, 2021 19:42
[2021-08-10] MEDS ORDERED: dilTIAZem 25 MG/5 ML VIAL IVP ONE (19:45)
[2021-08-10 19:48] LABS: CREATININE 2.4 mg/dL (0.7-1.3); GFR 25.7; POTASSIUM 4.8 mmol/L (3.5-5.1)
--- NOTE | 2021-08-10 19:50 | RAD ---
EXAM: CT HEAD WITHOUT IV CONTRAST CLINICAL HISTORY: Reason: pain s/p fall, on blood thinners / Spl. Instructions: / History: COMPARISON: None. TECHNIQUE: Routine CT of the head without contrast. Soft tissues and bone windows were reviewed. PQRS compliance statement - One or more of the following individualized dose reduction techniques wer e utilized for this study: 1. Automated exposure control 2. Adjustment of the mA and/or kV according to patient size 3. Use of iterative reconstruction technique FINDINGS: There is no evidence of hemorrhage, mass or extra-axial fluid collection. Suggs-white differentiation is maintained with no evidence of edema. White matter foci of hypoattenuat ion likely changes of chronic small vessel disease. There is no mass effect or shift of the intracranial structures. The ventricles and cerebral sulci are prominent for the patients stated age consistent with generaliz ed cerebral volume loss. The cerebellum and brainstem are unremarkable. The calvarium demonstrates no evidence of fracture or focal lesion. There is normal aeration of the visualized paranasal sinuses and mastoid air cells. The visualized portions of the orbits are normal. Atherosclerotic calcifications of the intracranial internal carotid and vertebral arteries is seen. IMPRESSION: No evidence for acute intracranial process. White matter foci of hypoattenuation likely changes of chronic small vessel disease. EXAM: CT CERVICAL SPINE WITHOUT IV CONTRAST CLINICAL HISTORY: Reason: pain s/p fall, on blood thinners / Spl. Instructions: / History: COMPARISON: None available. TECHNIQUE: Helical CT of the cervical spine was performed. Axial, coronal and sagittal reformatted im ages were also performed. PQRS compliance statement - One or more of the following individualized dose reduction techniques wer e utilized for this study: 1. Automated exposure control 2. Adjustment of the mA and/or kV according to patient size 3. Use of iterative reconstruction technique FINDINGS: Vertebral body heights are preserved. No spondylolisthesis. And moderate to severe disc height loss at C2-3, C3-4, C4-5. Moderate C5-6 and C6-7 disc height loss. Small endplate osteophytes are seen. Atlantodental degenerative changes are seen. Left pleural effusion is partially profiled. Atherosclerotic calcifications of the intracranial inter nal carotid and vertebral arteries is seen. IMPRESSION: No acute fracture or subluxation. Multilevel degenerative changes of the cervical spine as above. Electronically signed by: Omer Walls MD (08/10/2021 7:48 PM) [place]
[2021-08-10] MEDS ORDERED: IV NORMAL SALINE 100ML 0 ML ONE (19:53)
[2021-08-10 20:03] LABS: ALBUMIN 3.5 g/dL (3.4-5.0); ALBUMIN/GLOBULIN RATIO 0.7 (1.0-1.7); MAGNESIUM 2.4 mg/dL (1.8-2.4); TOTAL BILIRUBIN 1.1 mg/dL (0.2-1.0); TOTAL PROTEIN 8.3 g/dL (6.4-8.2)
[2021-08-10] MEDS: dilTIAZem VIAL 125 MG in IV NORMAL SALINE 100ML 100 ML IV PRN (20:16)
[2021-08-10] MEDS ORDERED: ACETAMINOPHEN 500 MG TABLET PO ONE (20:30)
--- NOTE | 2021-08-10 20:30 | RAD ---
STUDY: 1. CT thoracic spine without contrast 2. CT lumbar spine without contrast INDICATION: Pain. Fall. COMPARISON: CT abdomen/pelvis 02/15/2021; CT chest 11/12/2020; lumbar spine CT 09/19/2020 TECHNIQUE: Axial CT imaging of the thoracic and lumbar spine performed without the use of contrast. C oronal and sagittal reformats were obtained. One or more of the following individualized dose reduction techniques were utilized for this examinat ion: 1. Automated exposure control 2. Adjustment of the mA and/or kV according to patient size 3. Use of iterative reconstruction technique. FINDINGS: Thoracic spine: Diffuse osteopenia limits assessment for subtle fractures. No newly apparent vertebral body height lo ss. Mild height loss and endplate undulation at the upper aspect of T3 is unchanged. Bridging ventral osteophytes without newly developed discontinuity. No traumatic listhesis or facet malalignment. Conchita ear defect of the right T4 superior articulating facet is chronic. Scattered degenerative changes without more than mild osseous neural foraminal narrowing. Greater deg ree of degenerative changes at the lower cervical spine better evaluated on the dedicated CT of this region. Extensive calcific atherosclerosis with coronary artery involvement and poorly characterize stenoses at the celiac and renal artery origins. Multiple granulomas. Mitral and partially imaged aortic annul ar mineralization. Similarly sized mediastinal lymph nodes. Development of small bilateral pleural ef fusions. Redemonstration of soft tissue pleural plaques and scattered mineralization. The partially i daren ribs are intact. A few chronic deformities of left ribs. Partially imaged hypoattenuating foci within the liver also present previously. Prominent partially imaged right renal cyst also present pr eviously in addition to an exophytic intermediate density focus off the upper pole the right kidney. Lumbar spine: No change in lumbar vertebral body height or alignment with sigmoid curvature and grade 1 L2 on L3 an terolisthesis. Discogenic arthrosis greatest at L3-L4 and L4-L5. Facet arthrosis at all lumbar levels ranging from mild to severe. Central canal stenosis most notable at L2-L3 and L3-L4. Neural foramina l stenosis greatest on the right at L3-L4 and L4-L5. No definitive fracture throughout the partially assessed pelvis considering marked osteopenia. Severe calcific atherosclerosis colonic diverticulosis. Mildly distended urinary bladder. Pelvic surg ical clips. Partially imaged penile prosthesis. Atrophic left kidney. Previous the described pancreat ic abnormalities are not fully characterized on this exam but measure similar in size. Many of the described nonosseous findings had follow-up recommendations on previous studies. The curr ent exams are inadequate to confirm stability. IMPRESSION: Thoracic and Lumbar Spine: 1. Taking into consideration diffuse osteopenia, no acute fracture is identified. No traumatic malal ignment. 2. Multifactorial degenerative changes involving the lumbar spine more so than thoracic spine withou t significant progression from comparison exams. Central canal stenosis is favored greatest at L3-L4 and L4-L5. 3. Newly developed small bilateral pleural effusions and progressive atelectasis. Correlate for symp toms of congestive heart failure/volume overload. 4. Multiple nonosseous findings as described in the body report are without significant change from recent comparison exams noting incomplete characterization. Electronically signed by: KENIA DO MD (08/10/2021 8:27 PM) [facility]
[2021-08-10] MEDS ORDERED: ACETAMINOPHEN 325 MG TABLET PO PRN (21:15)
[2021-08-10] MEDS ORDERED: ONDANSETRON PF 4 MG/2 ML VIAL. IVP PRN (21:15)
--- NOTE | 2021-08-10 23:26 | EKG ---
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
[2021-08-11] VITALS (22 sets, daily range): BP systolic 93–141; BP diastolic 59–88
[2021-08-11] MEDS ORDERED: TORS20TA2 PO (03:06)
[2021-08-11] MEDS ORDERED: PRAV80TA2 PO (03:06)
[2021-08-11] MEDS ORDERED: SACC250C8 PO (03:06)
[2021-08-11] MEDS ORDERED: CHOL500050 PO (03:06)
[2021-08-11] MEDS ORDERED: APIX2.5T PO (03:06)
[2021-08-11] MEDS ORDERED: CYAN500011 PO (03:06)
[2021-08-11] MEDS ORDERED: METO-247 PO (03:06)
[2021-08-11] MEDS ORDERED: DILT120C99 PO (03:06)
[2021-08-11] MEDS ORDERED: NITR0.4T22 SL (03:06)
[2021-08-11] MEDS: dilTIAZem VIAL 125 MG in IV NORMAL SALINE 100ML 100 ML IV PRN (04:45)
[2021-08-11] MEDS: oxyCODONE/APAP 7.5/325 1 TAB TABLET PO PRN ×3 (05:54→21:02)
--- NOTE | 2021-08-11 08:42 | PDOC2 ---
CARDIAC CONSULT DATE OF CONSULT DOS: DATE: 08/11/21 TIME: 08:27 REASON FOR CONSULT Reason for Consult AFIB with RVR REFERRING PHYSICIAN Referring Physician Dr. Owusu SOURCE Source: Chart review, Patient HPI History of Present Illness This is an 89 yo male who presented secondary to mechanical fall. Patient reportedly bent over to get gutierrez out of cabinet. Stood up and lost balance and fell. Hit head on cabinet behind him. No reports of dizziness or lightheadedness prior to fall. Does have a history of CAD and AFIB and is on Eliquis. Follows with Dr. Jaime Hubbard. Rate elevated upon arrival to the ED, which prompted this consult. Also history of CHF. Has had bilateral LE edema since . Lasix rece ntly changed to Torsdmide. Cardizem was also added to metoprolol for rate control. Daughter reports normal stress test a month ago. Patient denies any chest pain, palpitation, dizziness, diaphoresis, or nausea/vomiting. Does reports some mild shortness of breath and LE edema. PAST MEDICAL HISTORY Cardiovascular: AFIB, CAD, CHF Pulmonary: Pneumonia, Other (SVITLANA) Musculoskeletal: Osteoarthritis Renal/: Chronic renal insuff, Prostate Ca. (s/p prostatectomy ) Endocrine: Diabetes PAST SURGICAL HISTORY Past Surgical History: Cholecystectomy, Cataract Removal, Total knee replacement (bilateral ) FAMILY HISTORY Family History: Heart Disease SOCIAL HISTORY Smoke: No ALCOHOL: none Drugs: None Lives: with Family CURRENT MEDICATIONS Current Medications Current Medications Diltiazem HCl (Cardizem Iv Push) 20 mg 1X ONCE IVP Last administered on 08/10/21at 19:59; Start 08/10/21 at 19:45; Stop 08/10/21 at 19:51; Status DC Diltiazem HCl 125 mg/Sodium Chloride 125 ml @ 5 mls/hr CONT PRN IV PER PROTOCOL Last administered on 08/11/21at 04:45; Start 08/10/21 at 19:45 Sodium Chloride 0 ml @ As Directed STK-MED ONCE .ROUTE ; Start 08/10/21 at 19:53; Stop 08/10/21 at 19:53; Status DC Diltiazem HCl (Cardizem) 125 mg STK-MED ONCE IV ; Start 08/10/21 at 19:53; Stop 08/10/21 at 19:53; Status DC Acetaminophen (Tylenol) 500 mg 1X ONCE PO Last administered on 08/10/21at 20:33; Start 08/10/21 at 20:30; Stop 08/10/21 at 20:33; Status DC Ondansetron HCl (Zofran) 4 mg PRN Q4HRS PRN IVP NAUSEA/VOMITING; Start 08/10/21 at 21:15; Stop 08/11/21 at 21:14 Acetaminophen (Tylenol) 500 mg Q6HRS PRN PO PAIN; Start 08/10/21 at 21:15; Stop 08/11/21 at 21:14 Oxycodone/ Acetaminophen (Percocet 7.5/ 325) 1 tab PRN Q6HRS PRN PO PAIN; Start 08/11/21 at 05:30 Active Scripts Active Reported Vitamin B-12 (Cyanocobalamin (Vitamin B-12)) 5,000 Mcg Capsule 5,000 Mcg PO DAILY Vitamin D3 (Cholecalciferol (Vitamin D3)) 1,250 Mcg Capsule 1,000 Mcg PO DAILY Probiotic (Saccharomyces Boulardii) 250 Mg Capsule 250 Mg PO DAILY Eliquis (Apixaban) 2.5 Mg Tablet 2.5 Mg PO BID Pravastatin Sodium 80 Mg Tablet 80 Mg PO QHS NITROGLYCERIN SubLingual (Nitroglycerin) 0.4 Mg Tab.subl 0.4 Mg SL PRN Q5MIN PRN Metoprolol Succinate ( Xl ) (Metoprolol Succinate) 100 Mg Tab.er.24h 100 Mg PO DAILY Torsemide 20 Mg Tablet 20 Mg PO DAILY Diltiazem 24HR Cd (Diltiazem Hcl) 120 Mg Cap.er.24h 120 Mg PO DAILY Alogliptin (Alogliptin Benzoate) 6.25 Mg Tablet 6.25 Mg PO DAILY LAST DOSE GIVEN: DATE: TIME: NEXT DOSE DUE: DATE: TIME: Klor-Con M20 (Potassium Chloride) 20 Meq Tab.er.prt 20 Meq PO DAILY LAST DOSE GIVEN: DATE: TIME: NEXT DOSE DUE: DATE: TIME: Eliquis (Apixaban) 2.5 Mg Tablet 2.5 Mg PO BID LAST DOSE GIVEN: DATE: TIME: NEXT DOSE DUE: DATE: TIME: Amlodipine Besylate 10 Mg Tablet 10 Mg PO DAILY LAST DOSE GIVEN: DATE: TIME: NEXT DOSE DUE: DATE: TIME: Gabapentin (Gabapentin) 300 Mg Capsule 300 Mg PO BID LAST DOSE GIVEN: DATE: TIME: NEXT DOSE DUE: DATE: TIME: ALLERGIES Allergies: Coded Allergies: No Known Drug Allergies (Unverified , 11/12/20) ROS Review of Systems 14 point ROS conducted with pertinent positives noted above in HPI PHYSICAL EXAM General: Alert, Oriented X3, Cooperative, No acute distress HEENT: Atraumatic Lungs: Other (diminished bases) Heart: Other (AFIB, rate near 115) Abdomen: Soft, No tenderness Extremities: Other (2+ bilateral LE edema ) Skin: No breakdown Neuro: Normal speech, Sensation intact Psych/Mental Status: Mental status NL, Mood NL MUSCULOSKELETAL: Osteoarthritic changes both hands VITALS Vital Signs Vital Signs Date Time Temp Pulse Resp B/P (MAP) Pulse Ox O2 Delivery O2 Flow Rate FiO2 08/11/21 06:00 115 18 119/74 (89) 90 BiPAP/CPAP 08/11/21 00:05 97.9 LABS LABS Laboratory Tests Test 08/10/21 19:24 08/10/21 19:31 08/10/21 20:40 08/10/21 21:30 White Blood Count 9.2 x10^3/uL (4.0-11.0) Red Blood Count 3.74 x10^6/uL (4.30-5.70) Hemoglobin 12.3 g/dL (13.0-17.5) Hematocrit 36.9 % (39.0-53.0) Mean Corpuscular Volume 99 fL (79-100) Mean Corpuscular Hemoglobin 33 pg (25-35) Mean Corpuscular Hemoglobin Concent 33 g/dL (31-37) Red Cell Distribution Width 13.8 % (11.5-14.5) Platelet Count 195 x10^3/uL (140-400) Neutrophils (%) (Auto) 62 % (31-73) Lymphocytes (%) (Auto) 25 % (24-48) Monocytes (%) (Auto) 9 % (0-9) Eosinophils (%) (Auto) 4 % (0-3) Basophils (%) (Auto) 1 % (0-3) Neutrophils # (Auto) 5.7 x10^3uL (1.8-7.7) Lymphocytes # (Auto) 2.3 x10^3/uL (1.0-4.8) Monocytes # (Auto) 0.8 x10^3/uL (0.0-1.1) Eosinophils # (Auto) 0.3 x10^3/uL (0.0-0.7) Basophils # (Auto) 0.1 x10^3/uL (0.0-0.2) Prothrombin Time 11.8 SEC (9.4-11.4) Prothromb Time International Ratio 1.1 (0.9-1.1) Activated Partial Thromboplast Time 29 SEC (23-33) Sodium Level 135 mmol/L (136-145) Potassium Level 4.8 mmol/L (3.5-5.1) Chloride Level 99 mmol/L (98-107) Carbon Dioxide Level 22 mmol/L (21-32) Anion Gap 14 (6-14) Blood Urea Nitrogen 59 mg/dL (8-26) Creatinine 2.4 mg/dL (0.7-1.3) Estimated GFR (Cockcroft-Gault) 25.7 BUN/Creatinine Ratio 25 (6-20) Glucose Level 163 mg/dL (70-99) Calcium Level 9.0 mg/dL (8.5-10.1) Magnesium Level 2.4 mg/dL (1.8-2.4) Total Bilirubin 1.1 mg/dL (0.2-1.0) Aspartate Amino Transf (AST/SGOT) 24 U/L (15-37) Alanine Aminotransferase (ALT/SGPT) 21 U/L (16-63) Alkaline Phosphatase 78 U/L (46-116) Creatine Kinase 65 U/L (39-308) Creatine Kinase MB (Mass) 1.4 ng/mL (0.0-3.6) Creatine Kinase MB Relative Index 2.2 % (0-4) Troponin I High Sensitivity 11 ng/L (4-75) Total Protein 8.3 g/dL (6.4-8.2) Albumin 3.5 g/dL (3.4-5.0) Albumin/Globulin Ratio 0.7 (1.0-1.7) Lipase 277 U/L (73-393) Lactic Acid Level 1.4 mmol/L (0.4-2.0) Coronavirus (COVID-19)(PCR) Not detected (NOT DETECTD) SARS-CoV-2 Antigen (Rapid) Negative (NEGATIVE) YB-[id number]-[id number]-Type Natriuretic Peptide 5023 pg/mL (0-449) Test 08/11/21 00:52 08/11/21 03:14 08/11/21 07:24 Troponin I High Sensitivity 13 ng/L (4-75) 16 ng/L (4-75) 15 ng/L (4-75) ASSESSMENT/PLAN Assessment/Plan 1. Mechanical fall. Denies any precipitating dizziness or LOC. No prior falls 2. Persistent AFIB presenting with RVR; On Cardizem gtt. Takes metoprolol and Cardizem at home. Is on Eliquis for stroke prophylaxis 3. CAD s/p PCI/stent. Daughter reports normal stress test recently. Follows with [facility] cardiology, Dr. Sandoval 4. Acute on chronic probable diastolic CHF 5. PANCHO on CKD Recommendations Mild diuresis with close monitoring of renal function Resume metoprolol, Cardizem for rate control. Titrate off Cardizem gtt Low does Eliquis for stroke prophylaxis. If falls recurrent, recommend using ASA therapy alone Supportive care PARKER GARCIA APRN Aug 11, 2021 08:42
[2021-08-11] MEDS ORDERED: FUROSEMIDE 40 MG/4 ML VIAL IVP ONE (09:15)
[2021-08-11] MEDS: METOPROLOL SUCC 24HR ER 50 MG TAB.ER.24H. PO SCH (09:42)
[2021-08-11] MEDS: APIXABAN 2.5 MG TABLET PO SCH ×2 (09:42→21:02)
--- NOTE | 2021-08-11 10:15 | HP ---
DATE OF SERVICE: 08/11/2021 ADMIT DATE: 08/10/2021 ATTENDING PHYSICIAN: Dr. Naranjo. CHIEF COMPLAINT: Shortness of breath. HISTORY OF PRESENT ILLNESS: The patient is an 89-year-old gentleman who is fairly active. He lost control of balance and fell at home. He was found to be in atrial fibrillation with rapid ventricular rate. He has bilateral edema since [place]. Lasix was changed to torsemide. Cardizem was added to metoprolol. He may have had a syncopal episode. He does not remember what happened. There is no obvious long bone fracture or acute stroke. His ventricular rate was up in the 150s and he was admitted on a diltiazem drip. He normally sees Dr. Sandoval at [facility]. We will have our Cardiology services see him here for consultation. PAST MEDICAL HISTORY: Significant for prostate cancer, chronic renal failure, type 2 diabetes, mild COPD. CURRENT MEDICATIONS: Reviewed. He was on amlodipine, Eliquis, cholecalciferol, vitamin B12, diltiazem, 120 Neurontin, metoprolol, potassium, pravastatin, probiotic, and Demadex. ALLERGIES: He has no recorded drug allergies. SOCIAL HISTORY: Currently nonsmoker, nondrinker. FAMILY HISTORY: Father at age 75 of prostate cancer. Mother in her mid 80s of old age. OTHER MEDICAL ISSUES: Include a recent cardiac evaluation, just had a nonischemic stress test in the last several weeks. REVIEW OF SYSTEMS: All other systems reviewed and turned out to be negative. PHYSICAL EXAMINATION: GENERAL: When I saw him, this is a pleasant gentleman. He was able to answer questions appropriately. VITAL SIGNS: Initial vital signs showed a blood pressure of 118/74; pulse is 115, irregularly irregular. Oxygen saturation 93% on room air. He is afebrile. HEENT: Head is without trauma. Pupils are reactive. Sclerae nonicteric. Oropharynx is clear. NECK: Supple, no bruits identified. CARDIOVASCULAR SYSTEM: Showed tachycardic rhythm, irregularly irregular. No obvious gallops. Peripheral pulses are palpable and full. ABDOMEN: Obese, protuberant. No organomegaly. EXTREMITIES: Show 2+ edema. NEUROLOGIC: Function focally intact. Speech is fluent. PERTINENT LABORATORY STUDIES: The hemoglobin on admission was 12.3 g/dL with a white count of 9200. BNP was 5000. Chemistry panel: Potassium 4.8 mEq, creatinine is 2.4 mg/dL. Nonfasting blood sugar 130. ASSESSMENT: 1. An 89-year-old gentleman with acute on chronic congestive heart failure. 2. Atrial fibrillation with rapid ventricular rate. 3. Chronic kidney disease, stage IV. 4. History of coronary artery disease. 5. Pedal edema. 6. Essential hypertension. PLAN: 1. Admit to their ICU. 2. Telemetry monitoring. 3. Continue Cardizem drip. 4. Recs per our Cardiology services. JAMIR/NNAMDI/IQB DR: JAMIR/brianna TID: [id number] CC: Tobias Ochoa MD
[2021-08-12] MEDS ORDERED: DIGOXIN IV 500 MCG/2 ML AMPUL. IV ONE ×4 (01:45→18:00)
[2021-08-12 05:58] VITALS: BP 133/66
[2021-08-12] MEDS: APIXABAN 2.5 MG TABLET PO SCH ×2 (07:46→21:22)
[2021-08-12] MEDS: METOPROLOL SUCC 24HR ER 50 MG TAB.ER.24H. PO SCH (07:47)
[2021-08-12 09:41] VITALS: BP 133/66
--- NOTE | 2021-08-12 12:12 | PDOC ---
DATE OF SERVICE: DOS: DATE: 08/12/21 TIME: 12:08 SUBJECTIVE: Patient seen and examined He is feeling better. OBJECTIVE: Problems: Problems Medical Problems: (1) Acute exacerbation of chronic low back pain Status: Acute (2) Fall Status: Acute Vital Signs/I&O: Vital Signs Date Time Temp Pulse Resp B/P (MAP) Pulse Ox O2 Delivery O2 Flow Rate FiO2 08/12/21 09:41 97.7 123 133/66 (88) 92 Room Air 08/12/21 05:58 18 I & O 08/11/21 08/11/21 08/12/21 15:00 23:00 07:00 Intake Total 350 ml 400 ml 880 ml Output Total 800 ml 550 ml Balance -450 ml 400 ml 330 ml Physical Exam: Chest. Minimally decreased breath sounds. CV. Irregularly irregular rate of 120 Abdomen. Soft. ASSESSMENT: Mechanical fall. Denies any precipitating dizziness or LOC. No prior falls Persistent AFIB presenting with RVR; Cardizem has been tapered off. The patient's beta-nehemiah and calcium nehemiah have been unable to be increased due to the patient's blood pressure. Patient was treated with digoxin overnight with improved rate control. At this time will proceed with further digoxin today. Depending on clinical course and morning lab will consider starting digoxin 0.125 mg a day tomorrow with close follow-up. I would prefer to treat the patient with his beta-nehemiah and calcium nehemiah if we can control his rate sufficiently. Of note the patient has chronic kidney disease with an elevated creatinine as above which will be rechecked tomorrow. CAD s/p PCI/stent. Daughter reports normal stress test recently. Follows with [facility] cardiology, Dr. Sandoval Acute on chronic probable diastolic CHF PANCHO on CKD. Monitoring lab. Justification of Admission: Justification of Admission: Justification of Admission Dx: Yes PASCUAL MCKEON MD Aug 12, 2021 12:12
[2021-08-12 13:45] VITALS: BP 125/70
--- NOTE | 2021-08-12 14:16 | PN ---
DATE: 08/12/2021 ATTENDING PHYSICIAN: Dr. Naranjo. SUBJECTIVE: The patient is fairly alert. He is eating breakfast independently. He still is very weak. He has dyspnea with very minimal exertion. OBJECTIVE FINDINGS: VITAL SIGNS: His blood pressure this morning is 133/66, last night, it had dropped to 93/50 from his beta blockers and Cardizem. His oxygen saturation 92% on room air. He was afebrile. His heart rate still is elevated. He has irregularly irregular rhythm with a ventricular rate between 110 and 140 per minute. HEENT: Head is without trauma. Pupils are reactive. Sclerae nonicteric. Oropharynx is clear. NECK: Supple, no bruits identified. LUNGS: Good breath sounds. No wheezing or rales. CARDIOVASCULAR: Showed tachycardic rhythm, irregularly irregular, variable S1, faint S2. No gallops. Peripheral pulses are palpable and full. ABDOMEN: Soft, obese, protuberant. EXTREMITIES: Showed trace edema. NEUROLOGIC: Function focally intact. Speech is fluent. Serology was negative for coronavirus. LABORATORY DATA: The hemoglobin on admission was 12.3 g with normal white count of 9200. ASSESSMENT: 1. An 89-year-old gentleman with permanent atrial fibrillation with rapid ventricular rate. 2. Chronic kidney disease stage IV. 3. Known coronary artery disease. 4. Essential hypertension. 5. Pedal edema. PLAN: 1. Digitalis was added last night because of his blood pressure issues. I will give him another dose this morning of 0.25 mg intravenously. He should be loaded if we are going to consider continuing. 2. Further recommendation by our Cardiology services. 3. Discharge is not possible today. He is still quite symptomatic. We are still trying to manage his heart rate without lowering his blood pressure to an acceptable range. 4. Diet as tolerated. 5. He remained a FULL CODE per advanced directive. JAMIR/JOSELINE/IQB DR: JAMIR/brianna TID: [id number] CC: Tobias Ochoa MD
[2021-08-12 14:30] VITALS: BP 124/72
[2021-08-12] MEDS: oxyCODONE/APAP 7.5/325 1 TAB TABLET PO PRN (14:39)
[2021-08-12] MEDS: DOCUSATE SODIUM 100 MG CAPSULE PO PRN (16:19)
[2021-08-12 19:45] VITALS: BP 139/84
[2021-08-12] MEDS: ONDANSETRON ODT 4 MG TAB.RAPDIS PO PRN (21:22)
[2021-08-13 03:00] VITALS: BP 168/79
[2021-08-13 06:19] VITALS: BP 143/73
[2021-08-13 06:54] LABS: CALCIUM 8.9 mg/dL (8.5-10.1); CREATININE 1.9 mg/dL (0.7-1.3); GFR 33.6; MAGNESIUM 2.4 mg/dL (1.8-2.4); POTASSIUM 4.4 mmol/L (3.5-5.1)
[2021-08-13] MEDS: APIXABAN 2.5 MG TABLET PO SCH ×2 (08:01→20:10)
[2021-08-13] MEDS: METOPROLOL SUCC 24HR ER 50 MG TAB.ER.24H. PO SCH (08:02)
[2021-08-13] MEDS ORDERED: MAGNESIUM CITRATE 296 ML SOLUTION. PO ONE (10:00)
--- NOTE | 2021-08-13 10:14 | PN ---
DATE: 08/13/2021 ATTENDING PHYSICIAN: Dr. Naranjo. SUBJECTIVE: The patient still is very weak. He is fairly alert. He is on room air oxygen. Heart rate is better controlled, but he is still apprehensive about going home. He has requested subacute rehab upon discharge. We will look into this. OBJECTIVE FINDINGS: VITAL SIGNS: Blood pressure is 143/72, pulse is between 80 and 100, irregularly irregular. He is afebrile. Oxygen saturation 93% on room air. HEENT: Head is without trauma. Pupils are reactive. Sclerae nonicteric. Oropharynx clear. NECK: Supple. LUNGS: Good breath sounds. CARDIOVASCULAR: Showed irregularly irregular rhythm, variable S1, normal S2. No gallops. ABDOMEN: Soft, distended. There is increased tympany. EXTREMITIES: Show trace edema. NEUROLOGIC FINDINGS: Focally intact. ASSESSMENT: 1. An 89-year-old gentleman with atrial fibrillation with rapid ventricular rate controlled with the addition of digitalis to his beta blockers and Cardizem. 2. Hypotension, now normotensive. 3. Probable constipation. 4. Generalized debilitation. PLAN: 1. Magnesium citrate has been ordered. 2. Digitalis per Cardiology. 3. Home meds otherwise reviewed. 4. Diet as tolerated. 5. We will call [facility] to see if he can have placement first part of next week. STANFORD DR: JAMIR/brianna TID: [id number]
[2021-08-13 11:17] VITALS: BP 117/68
[2021-08-13] MEDS: ONDANSETRON ODT 4 MG TAB.RAPDIS PO PRN (11:45)
[2021-08-13] MEDS ORDERED: SODIUM PHOSPHATES 19/7GM 133 ML ENEMA. PR ONE (14:15)
[2021-08-13 16:20] VITALS: BP 135/79
[2021-08-13 19:00] VITALS: BP 156/83
[2021-08-13 23:00] VITALS: BP 172/91
[2021-08-14 05:00] VITALS: BP 131/76
[2021-08-14] MEDS: METOPROLOL SUCC 24HR ER 50 MG TAB.ER.24H. PO SCH (07:54)
[2021-08-14] MEDS: APIXABAN 2.5 MG TABLET PO SCH ×2 (07:54→20:46)
--- NOTE | 2021-08-14 08:26 | PN ---
DATE: 08/14/2021 ATTENDING PHYSICIAN: Dr. Naranjo. SUBJECTIVE: No new complaints. He had a good bowel movement with laxatives and enema yesterday. OBJECTIVE FINDINGS: VITAL SIGNS: Blood pressure this morning is 131/76 mmHg. Heart rate ranged between 68 and 110, irregularly irregular. He is afebrile. Oxygen saturation 96% on room air. HEENT: Head is without trauma. Pupils are reactive. Sclerae nonicteric. Oropharynx clear. NECK: Supple, no bruits. LUNGS: Good breath sounds. CARDIOVASCULAR: Showed distant heart tones. Irregularly irregular rhythm. No obvious gallops. ABDOMEN: Soft, nontender. No guarding. EXTREMITIES: Show trace edema. NEUROLOGIC: Focally intact. Speech is fluent. ASSESSMENT: 1. An 89-year-old gentleman with atrial fibrillation with rapid ventricular rate, improved and controlled with the addition of Digitalis to his beta nehemiah and Cardizem. 2. Hypertension, now normotensive. 3. Constipation, resolved. 4. Generalized debilitation. 5. Chronic low back pain. PLAN: 1. Sae per Cardiology. 2. Medicine reviewed and continued. 3. He is requesting subacute rehabilitation. We will look at a facility starting tomorrow for discharge planning. NICOLE DR: Clare TID: [id number]
[2021-08-14 12:15] VITALS: BP 130/63
[2021-08-14 15:51] VITALS: BP 168/84
[2021-08-14 20:12] VITALS: BP 131/81
[2021-08-14] MEDS: oxyCODONE/APAP 7.5/325 1 TAB TABLET PO PRN (21:45)
[2021-08-14 23:43] VITALS: BP 136/78
[2021-08-15] MEDS: METOPROLOL SUCC 24HR ER 50 MG TAB.ER.24H. PO SCH (05:16)
[2021-08-15 05:54] VITALS: BP 138/80
[2021-08-15] MEDS: APIXABAN 2.5 MG TABLET PO SCH ×2 (07:45→21:23)
--- NOTE | 2021-08-15 07:47 | PDOC ---
RADHA,EMILY AMANDA 08/15/21 0747: CARDIO Progress Notes Date & Time Date of Service DATE: 08/15/21 TIME: 07:41 Time of Evaluation 07:41 Subjective Notes Some SOA laying down. LE swollen. No chest pain, palpitations. Vitals Vitals Vital Signs Date Time Temp Pulse Resp B/P (MAP) Pulse Ox O2 Delivery O2 Flow Rate FiO2 08/15/21 05:54 98.2 89 138/80 (99) 93 Nasal Cannula 2.0 08/14/21 23:43 18 Weight Weight [ ] Input and Output I.O. Intake and Output 08/15/21 07:00 Intake Total 240 ml Balance 240 ml Intake Oral 240 ml # Voids 4 # Bowel Movements 1 Physical Exams HEENT: Neck Supple W Full Motion Chest: Symmetric Lungs: Other (diminished bases) Heart: irregularly irregular (AFIB, rate near 80 presently ) Abdomen: Soft N/T Extremities: Other (2+ bilateral LE edema ) Neurology: alert, oriented, follow commands Assessment Assessment 1. Mechanical fall. Denies any precipitating dizziness or LOC. No prior falls 2. Persistent AFIB; intermittent RVR. On metoprolol, Cardizem. Has also received IV Dig multiple times 3. CAD s/p PCI/stent. Daughter reports normal stress test recently. Follows with [facility] cardiology, Dr. Sandoval 4. Acute on chronic probable diastolic CHF; s/p IV Lasix x1. oral diuretics not resumed. 5. PANCHO on CKD; improved Recommendations Continue metoprolol. Increase Cardizem for better rate control Low dose Eliquis for stroke prophylaxis. Repeat labs Mild diuresis with monitoring or renal function Supportive care CAESAR TESFAYE MD 08/15/21 1853: CARDIO Progress Notes Plan Plan Patient seen and examined. Agree with above nurse practitioner note. The patient has significant bilateral lower extremity edema and rales in his lung bases. Would plan for aggressive diuresis with a goal net negative of 2 to 3 L overnight. Supportive care for now. We will follow along closely. PARKER GARCIA APRN Aug 15, 2021 07:47 CAESAR TESFAYE MD Aug 15, 2021 18:53
[2021-08-15] MEDS ORDERED: FUROSEMIDE 40 MG/4 ML VIAL IVP ONE ×2 (08:00→19:00)
[2021-08-15] MEDS: POTASSIUM CHLORIDE 20 MEQ TABLET.ER. PO SCH (08:14)
[2021-08-15] MEDS: oxyCODONE/APAP 7.5/325 1 TAB TABLET PO PRN ×3 (08:14→21:24)
[2021-08-15 08:36] LABS: CALCIUM 8.9 mg/dL (8.5-10.1); CREATININE 1.7 mg/dL (0.7-1.3); GFR 38.2; MAGNESIUM 2.9 mg/dL (1.8-2.4); POTASSIUM 4.6 mmol/L (3.5-5.1)
--- NOTE | 2021-08-15 08:37 | PN ---
DATE: 08/15/2021 ATTENDING PHYSICIAN: Dr. Naranjo. SUBJECTIVE: No new complaints. Back pain remains chronic. OBJECTIVE FINDINGS: VITAL SIGNS: Blood pressure this morning is 138/80, pulse is between 80 and 120, irregularly irregular. He is afebrile. His oxygen saturation 93% on 2 liters by nasal cannula. HEENT: Head is without trauma. Pupils are reactive. Sclerae nonicteric. Oropharynx clear. NECK: Supple. LUNGS: Diminished breath sounds at bases. CARDIOVASCULAR: Showed irregularly irregular rhythm. No gallops. ABDOMEN: Soft. EXTREMITIES: Show trace edema. NEUROLOGIC FINDINGS: Flat affect, otherwise intact. ASSESSMENT: 1. An 89-year-old gentleman with atrial fibrillation with rapid ventricular rate. 2. Hypertension. 3. Chronic constipation, resolved. 4. Generalized debilitation. 5. Chronic low back pain requiring narcotics. PLAN: 1. Rate control per Cardiology. 2. We are working on discharge to a rehab facility. 3. Diet as tolerated. JOSE R DR: Clare TID: [id number]
[2021-08-15] MEDS ORDERED: TORSEMIDE 20 MG TABLET. PO SCH (09:00)
[2021-08-15 11:07] VITALS: BP 150/75
[2021-08-15 15:29] VITALS: BP 133/82
[2021-08-15] MEDS: TORSEMIDE 20 MG TABLET. PO SCH (16:20)
[2021-08-15] MEDS: DOCUSATE SODIUM 100 MG CAPSULE PO PRN (16:38)
[2021-08-15 19:00] VITALS: BP 165/92
[2021-08-15] MEDS ORDERED: ATORVASTATIN CALCIUM 20 MG TABLET PO SCH (21:00)
[2021-08-15 23:00] VITALS: BP 132/67
[2021-08-16] MEDS: oxyCODONE/APAP 7.5/325 1 TAB TABLET PO PRN (02:40)
[2021-08-16 05:00] VITALS: BP 145/99
[2021-08-16] MEDS: TORSEMIDE 20 MG TABLET. PO SCH (07:37)
[2021-08-16 07:38] VITALS: BP 145/99
[2021-08-16] MEDS: POTASSIUM CHLORIDE 20 MEQ TABLET.ER. PO SCH (07:38)
[2021-08-16] MEDS: APIXABAN 2.5 MG TABLET PO SCH (07:38)
[2021-08-16] MEDS: METOPROLOL SUCC 24HR ER 50 MG TAB.ER.24H. PO SCH (07:38)
--- NOTE | 2021-08-16 08:09 | PDOC ---
CARDIO Progress Notes Date & Time Date of Service DATE: 08/16/21 TIME: 08:05 Time of Evaluation 08:05 Subjective Notes breathing improved. C/o lower back pain Vitals Vitals Vital Signs Date Time Temp Pulse Resp B/P (MAP) Pulse Ox O2 Delivery O2 Flow Rate FiO2 08/16/21 07:38 118 145/99 08/16/21 05:00 97.3 18 96 Room Air 08/15/21 05:54 2.0 Weight Weight [ ] Input and Output I.O. Intake and Output 08/16/21 07:00 Intake Total 720 ml Output Total 2550 ml Balance -1830 ml Intake Oral 720 ml Output Urine Total 2550 ml # Voids 3 Laboratory Labs Laboratory Tests Test 08/15/21 08:10 Sodium Level 139 mmol/L (136-145) Potassium Level 4.6 mmol/L (3.5-5.1) Chloride Level 105 mmol/L (98-107) Carbon Dioxide Level 25 mmol/L (21-32) Anion Gap 9 (6-14) Blood Urea Nitrogen 34 mg/dL (8-26) Creatinine 1.7 mg/dL (0.7-1.3) Estimated GFR (Cockcroft-Gault) 38.2 Glucose Level 147 mg/dL (70-99) Calcium Level 8.9 mg/dL (8.5-10.1) Magnesium Level 2.9 mg/dL (1.8-2.4) Physical Exams HEENT: Neck Supple W Full Motion Chest: Symmetric Lungs: Other (diminished bases) Heart: irregularly irregular (AFIB, rate 100-110 ) Abdomen: Soft N/T Extremities: Other (1-2+ bilateral LE edema ) Neurology: alert, oriented, follow commands, other (CROW) Assessment Assessment 1. Mechanical fall. Denies any precipitating dizziness or LOC. No prior falls 2. Persistent AFIB; rate controlled during day, but elevated during morning hours 3. CAD s/p PCI/stent. Daughter reports normal stress test recently. Follows [facility] cardiology, Dr. Sandoval 4. Acute on chronic probable diastolic CHF; s/p IV diuresis with good UOP 5. PANCHO on CKD; improved Recommendations Continue metoprolol, Cardizem for rate control. Consider changing metoprolol to BID dosing as rate seemed to be elevated every morning. Low dose Eliquis for stroke prophylaxis. Repeat labs. Continue oral Torsemide Supportive care Awaiting placement PARKER GARCIA APRN Aug 16, 2021 08:09
[2021-08-16 09:41] LABS: CALCIUM 9.1 mg/dL (8.5-10.1); CREATININE 1.9 mg/dL (0.7-1.3); GFR 33.6; MAGNESIUM 2.6 mg/dL (1.8-2.4); POTASSIUM 4.2 mmol/L (3.5-5.1)
--- NOTE | 2021-08-16 20:12 | DS ---
DATE OF DISCHARGE: 08/16/2021 ATTENDING PHYSICIAN: Dr. Naranjo. FINAL DISCHARGE DIAGNOSES: 1. Atrial fibrillation with rapid ventricular rate controlled. 2. Essential hypertension. 3. Chronic constipation. 4. Generalized debilitation. 5. Component of congestive heart failure, treated. 6. 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 PHYSICAL EXAMINATION: Please see the dictated note. PERTINENT LABORATORY AND X-RAY STUDIES: On this admission, his hemoglobin was 12.3 g/dL with a white count of 9200. Electrolytes all within normal range. Creatinine baseline for him is 1.7 mg/dL. Electrolytes within normal range. Cardiac enzymes negative for coronary ischemia. COURSE IN THE HOSPITAL: The patient was admitted. He was treated with intermittent digitalis, beta blockade and calcium channel nehemiah. He did well. Heart rate was better controlled. Physical therapy saw him. Cardiology Service on consultation recommended intermittent diuresis. He did well. We were getting ready to send him home, but because of his age and chronic medical issues, he wanted to go to a higher level of care. Therefore, we send him on the fifth hospital day to go to [facility], a subacute rehab with the following meds. He will continue his amlodipine, apixaban 2.5 mg b.i.d., diltiazem, metoprolol, potassium, pravastatin, and Demadex dose is unchanged. For now, we held his Neurontin, probiotic, vitamin D3 and B12 doses. His prognosis is guarded. He is a FULL CODE per advanced directives. The patient was then discharged from our hospital in stable condition to go to subacute rehab at [facility]. Total discharge time spent 39 minutes. JAMIR/ELISSA/CLAU DR: Clare TID: [id number] CC: Tobias Ochoa
== END 2021-08-16 11:06 | DRG 291 ==
LOC: ER 18:53 → ICU 21:13 → 1 SOUTH 08-11 19:15
PROVIDERS: ADMIT Hospitalist; ATTEND Hospitalist
PROC: 5A09357 Assistance with Respiratory Ventilation, Less than 24 Consecutive Hours, Continuous Positive Airway Pressure (ICD-10-PCS; principal; 2021-08-11)
PROC: 5A09357 Assistance with Respiratory Ventilation, Less than 24 Consecutive Hours, Continuous Positive Airway Pressure (ICD-10-PCS; 2021-08-13)
DX: I13.0 Hypertensive heart and chronic kidney disease with heart failure and stage 1 through stage 4 chronic kidney disease, or unspecified chronic kidney disease (principal); I50.23 Acute on chronic systolic (congestive) heart failure; N17.9 Acute kidney failure, unspecified; I48.21 Permanent atrial fibrillation; J98.11 Atelectasis; N18.4 Chronic kidney disease, stage 4 (severe); E11.22 Type 2 diabetes mellitus with diabetic chronic kidney disease; G89.29 Other chronic pain; H91.90 Unspecified hearing loss, unspecified ear; I25.10 Atherosclerotic heart disease of native coronary artery without angina pectoris; J44.9 Chronic obstructive pulmonary disease, unspecified; K59.09 Other constipation; M47.816 Spondylosis without myelopathy or radiculopathy, lumbar region; M48.061 Spinal stenosis, lumbar region without neurogenic claudication; M85.80 Other specified disorders of bone density and structure, unspecified site; W01.0XXA Fall on same level from slipping, tripping and stumbling without subsequent striking against object, initial encounter; W22.09XA Striking against other stationary object, initial encounter; Y92.009 Unspecified place in unspecified non-institutional (private) residence as the place of occurrence of the external cause; Z79.01 Long term (current) use of anticoagulants; Z80.42 Family history of malignant neoplasm of prostate; Z85.46 Personal history of malignant neoplasm of prostate; Z90.79 Acquired absence of other genital organ(s); Z95.5 Presence of coronary angioplasty implant and graft; Z96.653 Presence of artificial knee joint, bilateral; Z97.4 Presence of external hearing-aid; G47.33 Obstructive sleep apnea (adult) (pediatric); M19.90 Unspecified osteoarthritis, unspecified site; I11.0 Hypertensive heart disease with heart failure
CPT/HCPCS: 36415; 70450; 72125; 72128; 72131; 80048; 80053; 82553; 83605; 83690; 83735; 83880; 84484; 85025; 85610; 85730; 87426; 93005; 96365; 96366; 96375; J1160; J1940; J3490; Q0162; U0003; 97110; 97530; 99285-25